=== PATIENT | male | born 1950 | race Caucasian/White ===

== ENCOUNTER 2017-02-10 17:09 | Inpatient (IN) | payer MEDICARE ==
[~2017-02-10] VITALS: Ht 177.8 cm; Wt 41.4 kg
[2017-02-10 19:21] VITALS: BP 108/65; PULSE 95; RESP 20; TEMP 101.3; O2SAT 97
[2017-02-10 19:42] VITALS: BP 103/67; PULSE 98; RESP 22; TEMP 100.9; O2SAT 97
[2017-02-10] MEDS ORDERED: SODIUM CHLOR 0.9% 1000 ML INJ 1,000 ML IV ONE ×2 (19:49)
[2017-02-10] MEDS ORDERED: SODIUM CHLOR 0.9% 1000 ML INJ 100 ML IV ONE (19:49)
--- NOTE | 2017-02-10 19:57 | PD ---
HPI Chief Complaint: Altered Mental Status Time Seen by Provider: 19:45 Travel History International Travel<30 days: No Contact w/Intl Traveler<30days: No Traveled to known affect area: No History of Present Illness HPI The patient is a 66-year-old male who presents to the emergency department from the custodial for fever and possible underlying UTI. The patient is a somewhat limited historian who is oriented to person but not place , month, or year. He does complain of some lower abdominal pain and suprapubic discomfort. He denies any chest pain, shortness breath, nausea, or vomiting. The patient is unsure if he has a fever. The patient does state that he is able to swallow oral liquids and fluids, however, appears somewhat dehydrated. The patient denies any associated cough, constipation, or abdominal distention. The patient does have a chronic indwelling Robert catheter. The physician of record on the patient's custodial papers is Dr. Bonilla. [facility] Past Medical History Narrative Medical Hypertension, CAD status post CABG, aortic stenosis, COPD, atrial fibrillation Past Surgical History Narrative Surgical Back surgery 1985, aortic valve replacement, CABG 2 Social History Alcohol Use: No Tobacco Use: No (quit smoking in 2005.) Substance Use: No Allergies-Medications (Allergen,Severity, Reaction): Coded Allergies: No Known Allergies (Unverified , 02/10/17) Reported Meds & Prescriptions Reported Meds & Active Scripts Active Reported Sodium Chloride 1 Gram Tab 3 Gm PO TID Quetiapine (Quetiapine Fumarate) 25 Mg Tab 50 Mg PO BID Pravastatin 40 Mg Tab 40 Mg PO DAILY Nitroglycerin SL (Nitroglycerin) 0.4 Mg Subl 0.4 Mg SL DIRECTED PRN ONE TABLET UNDER THE TONGUE NEEDED FOR CHEST PAIN, MAY REPEAT EVERY FIVE MINUTES FOR A TOTAL OF 3 DOSES OR CALL 911 IF NO RELIEF Lisinopril 10 Mg Tab 10 Mg PO DAILY Duoneb (Ipratropium-Albuterol Neb) 0.5-2.5 Mg/3 Ml Neb 1 Nebule INH Q2HR PRN Flomax (Tamsulosin HCl) 0.4 Mg Cap 0.4 Mg PO HS Famotidine 20 Mg Tab 20 Mg PO BID [id number] HR Patch (Clonidine) 0.1 Mg/24 Hr Patch 1 Patch T-DERMAL Q7D Review of Systems Except as stated in HPI: all other systems reviewed are Neg General / Constitutional: Positive: Fever (per custodial) Cardiovascular: No: Chest Pain or Discomfort Respiratory: No: Cough, Shortness of Breath Gastrointestinal: Positive: Abdominal Pain, No: Nausea, Vomiting Genitourinary: Positive: Pelvic Pain, Other (chronic indwelling Robert catheter) Musculoskeletal: No: Edema Physical Exam Narrative GENERAL: Awake, alert, 66-year-old male who appears his stated age and is in no acute respiratory distress. SKIN: Focused skin assessment warm/dry. HEAD: Atraumatic. Normocephalic. EYES: Pupils equal and round. No scleral icterus. No injection or drainage. ENT: No nasal bleeding or discharge. Dry mucous membranes. NECK: Trachea midline. No JVD. CARDIOVASCULAR: Regular, tachycardic with a heart rate of 110. Well-healed scar over the anterior chest. RESPIRATORY: No accessory muscle use. Clear to auscultation. Breath sounds equal bilaterally. GASTROINTESTINAL: Abdomen soft, non-tender, nondistended. Chronic indwelling Robert catheter. Back: No obvious sacral decubitus ulcers. Stool noted in his depends. MUSCULOSKELETAL: Cachexia noted. Psychiatric tract, but unable to passively extend the legs bilaterally. NEUROLOGICAL: Awake and alert. No obvious cranial nerve deficits. Motor grossly within normal limits. Normal speech. Patient is oriented to person but not place, month, or year. PSYCHIATRIC: Slightly altered mental status. Data Data Last Documented VS Vital Signs Date Time Temp Pulse Resp B/P (MAP) Pulse Ox O2 Delivery O2 Flow Rate FiO2 02/10/17 22:03 103.9 02/10/17 21:12 122 22 96 Room Air Orders Orders Electrocardiogram (02/10/17 19:49) Complete Blood Count With Diff (02/10/17 19:49) Comprehensive Metabolic Panel (02/10/17 19:49) Lactic Acid Sepsis Protocol (02/10/17 19:49) Lipase (02/10/17 19:49) Ckmb (Isoenzyme) Profile (02/10/17 19:49) Troponin I (02/10/17 19:49) Urinalysis - C+S If Indicated (02/10/17 19:49) Blood Culture (02/10/17 19:49) Chest, Single Ap (02/10/17 19:49) Blood Glucose (02/10/17 19:49) Ecg Monitoring (02/10/17 19:49) Iv Access Insert/Monitor (02/10/17 19:49) Oximetry (02/10/17 19:49) Oxygen Administration (02/10/17 19:49) Acetaminophen (Tylenol) (02/10/17 20:00) Sodium Chlor 0.9% 1000 Ml Inj (Ns 1000 M (02/10/17 19:49) Sodium Chlor 0.9% 1000 Ml Inj (Ns 1000 M (02/10/17 19:49) Sodium Chlor 0.9% 1000 Ml Inj (Ns 1000 M (02/10/17 19:49) Acetaminophen Supp (Tylenol Supp) (02/10/17 20:45) Urine Culture (02/10/17 20:15) CKMB (02/10/17 20:15) CKMB% (02/10/17 20:15) Ceftriaxone Inj (Rocephin Inj) (02/10/17 22:00) Ketorolac Inj (Toradol Inj) (02/10/17 22:15) Influenzae A/B Antigen (02/10/17 22:08) Admit Order (Ed Use Only) (02/10/17 22:27) Labs Laboratory Tests Test 02/10/17 20:15 White Blood Count 11.4 TH/MM3 Red Blood Count 3.53 MIL/MM3 Hemoglobin 10.8 GM/DL Hematocrit 32.1 % Mean Corpuscular Volume 91.0 FL Mean Corpuscular Hemoglobin 30.5 PG Mean Corpuscular Hemoglobin Concent 33.6 % Red Cell Distribution Width 13.9 % Platelet Count 122 TH/MM3 Mean Platelet Volume 7.8 FL Neutrophils (%) (Auto) 91.2 % Lymphocytes (%) (Auto) 5.0 % Monocytes (%) (Auto) 3.3 % Eosinophils (%) (Auto) 0.2 % Basophils (%) (Auto) 0.3 % Neutrophils # (Auto) 10.4 TH/MM3 Lymphocytes # (Auto) 0.6 TH/MM3 Monocytes # (Auto) 0.4 TH/MM3 Eosinophils # (Auto) 0.0 TH/MM3 Basophils # (Auto) 0.0 TH/MM3 CBC Comment DIFF FINAL Differential Comment Urine Color YELLOW Urine Turbidity CLEAR Urine pH 5.5 Urine Specific [place] 1.011 Urine Protein TRACE mg/dL Urine Glucose (UA) NEG mg/dL Urine Ketones NEG mg/dL Urine Occult Blood SMALL Urine Nitrite NEG Urine Bilirubin NEG Urine Urobilinogen LESS THAN 2.0 MG/DL Urine Leukocyte Esterase SMALL Urine RBC 5 /hpf Urine WBC 7 /hpf Urine Mucus FEW /lpf Microscopic Urinalysis Comment CATH-CULTURE IND Blood Urea Nitrogen 26 MG/DL Creatinine 1.44 MG/DL Random Glucose 107 MG/DL Total Protein 7.1 GM/DL Albumin 2.7 GM/DL Calcium Level 8.9 MG/DL Alkaline Phosphatase 76 U/L Aspartate Amino Transf (AST/SGOT) 39 U/L Alanine Aminotransferase (ALT/SGPT) 36 U/L Total Bilirubin 0.5 MG/DL Sodium Level 137 MEQ/L Potassium Level 4.5 MEQ/L Chloride Level 103 MEQ/L Carbon Dioxide Level 27.2 MEQ/L Anion Gap 7 MEQ/L Estimat Glomerular Filtration Rate 49 ML/MIN Lactic Acid Level 1.7 mmol/L Total Creatine Kinase 246 U/L Creatine Kinase MB 8.1 NG/ML Troponin I 0.03 NG/ML Lipase 171 U/L [facility] Medical Decision Making Medical Screen Exam Complete: Yes Emergency Medical Condition: Yes Medical Record Reviewed: Yes Interpretation(s) EKG reveals sinus tachycardia with a heart rate of 109. Wavy baseline. Chest x-ray reveals no acute disease, postoperative sternotomy changes noted. Laboratory Tests Test 02/10/17 20:15 White Blood Count 11.4 TH/MM3 Red Blood Count 3.53 MIL/MM3 Hemoglobin 10.8 GM/DL Hematocrit 32.1 % Mean Corpuscular Volume 91.0 FL Mean Corpuscular Hemoglobin 30.5 PG Mean Corpuscular Hemoglobin Concent 33.6 % Red Cell Distribution Width 13.9 % Platelet Count 122 TH/MM3 Mean Platelet Volume 7.8 FL Neutrophils (%) (Auto) 91.2 % Lymphocytes (%) (Auto) 5.0 % Monocytes (%) (Auto) 3.3 % Eosinophils (%) (Auto) 0.2 % Basophils (%) (Auto) 0.3 % Neutrophils # (Auto) 10.4 TH/MM3 Lymphocytes # (Auto) 0.6 TH/MM3 Monocytes # (Auto) 0.4 TH/MM3 Eosinophils # (Auto) 0.0 TH/MM3 Basophils # (Auto) 0.0 TH/MM3 CBC Comment DIFF FINAL Differential Comment Urine Color YELLOW Urine Turbidity CLEAR Urine pH 5.5 Urine Specific [place] 1.011 Urine Protein TRACE mg/dL Urine Glucose (UA) NEG mg/dL Urine Ketones NEG mg/dL Urine Occult Blood SMALL Urine Nitrite NEG Urine Bilirubin NEG Urine Urobilinogen LESS THAN 2.0 MG/DL Urine Leukocyte Esterase SMALL Urine RBC 5 /hpf Urine WBC 7 /hpf Urine Mucus FEW /lpf Microscopic Urinalysis Comment CATH-CULTURE IND Blood Urea Nitrogen 26 MG/DL Creatinine 1.44 MG/DL Random Glucose 107 MG/DL Total Protein 7.1 GM/DL Albumin 2.7 GM/DL Calcium Level 8.9 MG/DL Alkaline Phosphatase 76 U/L Aspartate Amino Transf (AST/SGOT) 39 U/L Alanine Aminotransferase (ALT/SGPT) 36 U/L Total Bilirubin 0.5 MG/DL Sodium Level 137 MEQ/L Potassium Level 4.5 MEQ/L Chloride Level 103 MEQ/L Carbon Dioxide Level 27.2 MEQ/L Anion Gap 7 MEQ/L Estimat Glomerular Filtration Rate 49 ML/MIN Lactic Acid Level 1.7 mmol/L Total Creatine Kinase 246 U/L Creatine Kinase MB 8.1 NG/ML Troponin I 0.03 NG/ML Lipase 171 U/L Last Impressions Chest X-Ray 02/10/171948 Signed Impressions: Service Date/Time: Friday, February 10, 2017 19:56 - CONCLUSION: No acute disease. Jaylan Velazquez MD Differential Diagnosis Differential diagnosis includes urosepsis, UTI, pyelonephritis, dehydration, acute kidney injury, delirium, pneumonia, septicemia, sepsis. Narrative Course IV was established, labs are drawn and sent, and the patient was placed on cardiac telemetry monitoring and continuous pulse oximetry monitoring. EKG was ordered and interpreted. Blood cultures and lactic gas were sent to lab. The patient was administered 3 L of IV fluids. I had a discussion with patient's family at bedside who states the patient is at baseline, has been this way for the last month after he suffered an intracranial hemorrhage. Family states the patient was discharged discharged from this hospital last night and they were called stated the patient had a fever. However, they state the patient looks pretty well compared to his previous hospitalizations. The patient's lactic acid is normal. White count is minimally elevated just over 11. UA does have RBCs and WBCs. Chest x-rays clear. The patient was administered a dose of Rocephin 1 g intravenously. The patient was reevaluated at 10:03 PM, he was now more tachycardic at 123 and his temperature was now 103.9. I'm unsure if this is related to fever possible previous intracranial hemorrhage. Patient will need admission until blood cultures and urine cultures have resulted. The previous admitting service was called for admission. Sepsis Criteria SIRS Criteria (2 or more): Temp > 100.9 or < 96.8, Heart rate over 90 Sepsis Criteria (SIRS+source): Infect source susp/known Criteria Outcome: Meets sepsis criteria Physician Communication Physician Communication [facility] I discussed the patient with Dr. Shin who agrees with admission. Diagnosis Primary Impression: UTI (urinary tract infection) Qualified Codes: T83.511A - Infection and inflammatory reaction due to indwelling urethral catheter, initial encounter; N39.0 - Urinary tract infection , site not specified Additional Impressions: Febrile illness Sepsis Qualified Codes: A41.9 - Sepsis, unspecified organism Admitting Information Admitting Physician Requests: Admit Patient Instructions: General Instructions Additional Instructions: Discharge back to the custodial. Cipro as directed. Follow-up with your primary physician. Return if symptoms worsen or progress. Med/Other Pt SpecificInfo: Prescription(s) given Disposition: 01 DISCHARGE HOME Condition: Stable Delfino Montez MD Feb 10, 2017 19:57
[2017-02-10] MEDS ORDERED: ACETAMINOPHEN 325 MG TAB PO ONE (20:00)
[2017-02-10] MEDS ORDERED: PRAV40TA2 PO (20:11)
[2017-02-10] MEDS ORDERED: IPRASOL INH (20:11)
[2017-02-10] MEDS ORDERED: FAMO20TA2 PO (20:11)
[2017-02-10] MEDS ORDERED: SODI1TAB PO (20:11)
[2017-02-10] MEDS ORDERED: TAMS5CAP PO (20:11)
[2017-02-10] MEDS ORDERED: LISI10TA3 PO (20:11)
[2017-02-10] MEDS ORDERED: NITR1SUB3 SL (20:11)
[2017-02-10] MEDS ORDERED: QUET1TAB7 PO (20:11)
[2017-02-10] MEDS ORDERED: CLON.1T T-DERMAL (20:11)
--- NOTE | 2017-02-10 20:15 | RADRPT ---
EXAM DATE/TIME: 02/10/2017 19:56 [place] COMPARISON: No previous studies available for comparison. INDICATIONS : Shortness of breath. MEDICAL HISTORY : None. SURGICAL HISTORY : Thoracic surgery ENCOUNTER: Initial ACUITY: 1 day PAIN SCORE: Non-responsive. LOCATION: Bilateral chest FINDINGS: Median sternotomy wires are noted. Heart size normal. Lungs are clear. Mild hyperinflation. CONCLUSION: No acute disease. Jaylan Velazquez MD on February 10, 2017 at 20:14 Board Certified Radiologist. This report was verified electronically.
[2017-02-10 20:39] LABS: AUTOMATED NEUTROPHIL # 10.4 TH/MM3 (1.8-7.7); BASOPHIL % 0.3 % (0.0-2.0); EOSINOPHIL % 0.2 % (0.0-4.0); HEMATOCRIT 32.1 % (39.0-51.0); HEMO FLAGS DIFF FINAL; LYMPHOCYTE # 0.6 TH/MM3 (1.0-4.8); MEAN CORPUSCULAR HEMOGLOBIN 30.5 PG (27.0-34.0); MEAN CORPUSCULAR HGB CONC 33.6 % (32.0-36.0); MONO % 3.3 % (0.0-8.0); NEUT % 91.2 % (16.0-70.0); PLATELET COUNT 122 TH/MM3 (150-450); RED BLOOD COUNT 3.53 MIL/MM3 (4.50-5.90); RED CELL DISTRIBUTION WIDTH 13.9 % (11.6-17.2); WHITE BLOOD COUNT 11.4 TH/MM3 (4.0-11.0)
[2017-02-10 20:43] LABS: BLOOD, URINE SMALL (NEG); COMMENT (UR) CATH-CULTURE IND; CULTURE IF INDICATED CATH CULTURE IND; GLUCOSE,URINE NEG (NEG); KETONE, URINE NEG (NEG); MUCUS URINE FEW /lpf (OCC); NITRITE,URINE NEG (NEG); PH, URINE 5.5 (5.0-8.5); URINE COLOR YELLOW (YELLW/STRAW)
[2017-02-10] MEDS ORDERED: ACETAMINOPHEN 650 MG SUPP RECTAL ONE (20:45)
[2017-02-10 20:58] LABS: ALT (GPT) 36 U/L (12-78); ANION GAP 7 MEQ/L (5-15); AST (GOT) 39 U/L (15-37); BICARBONATE 27.2 MEQ/L (21.0-32.0); BLOOD UREA NITROGEN 26 MG/DL (7-18); CHLORIDE 103 MEQ/L (98-107); GLOMERULAR FILTRATION RATE 49 ML/MIN (>89); POTASSIUM 4.5 MEQ/L (3.5-5.1); SODIUM (NA) 137 MEQ/L (136-145)
[2017-02-10 21:03] LABS: ALKALINE PHOSPHATASE 76 U/L (45-117); CREATINE KINASE 246 U/L (39-308); TOTAL BILIRUBIN ADULT 0.5 MG/DL (0.2-1.0)
[2017-02-10 21:12] VITALS: BP 127/73; PULSE 122; RESP 22; O2SAT 96
[2017-02-10 21:15] LABS: CKMB 8.1 NG/ML (0.5-3.6)
[2017-02-10] MEDS ORDERED: cefTRIAXone INJ 1,000 MG in SODIUM CHLORIDE 0.9% INJ 100 ML IV ONE (22:00)
[2017-02-10 22:03] VITALS: BP 123/62; PULSE 120; RESP 20; TEMP 103.9; O2SAT 98
[2017-02-10] MEDS ORDERED: KETOROLAC TROMETHAMINE 30 MG/ML (IVP) VIAL IV PUSH ONE (22:15)
[2017-02-10] MEDS ORDERED: LACTULOSE SYRUP 20 GM/30 ML CUP PO PRN (22:45)
[2017-02-10] MEDS ORDERED: SENNOSIDES 8.6 MG TAB PO PRN (22:45)
[2017-02-10] MEDS ORDERED: ACETAMINOPHEN 325 MG TAB PO PRN (22:45)
[2017-02-10] MEDS ORDERED: RESP: ALBUTEROL 2.5 MG/IPRATROPIUM 0.5 MG NEB (PRN) NEB (22:45)
[2017-02-10] MEDS ORDERED: MORPHINE SULFATE 4 MG/ML INJ IV PUSH PRN (22:45)
[2017-02-10] MEDS ORDERED: MAGNESIUM HYDROXIDE SUSP 30 ML CUP PO PRN (22:45)
[2017-02-10] MEDS ORDERED: SODIUM CHLORIDE 0.9% FLUSH 10 ML FLUSH IV FLUSH PRN (22:45)
[2017-02-10] MEDS ORDERED: ONDANSETRON HCL 4 MG/2 ML VIAL IVP PRN (22:45)
[2017-02-10] MEDS ORDERED: BISACODYL 10 MG SUPP RECTAL PRN (22:45)
--- NOTE | 2017-02-10 22:49 | HHI.HP ---
[facility] Ousmane Medrano MD Admission Diagnosis UTI, febrile illness, sepsis Diagnoses: (1) Encephalopathy Diagnosis: Principal (2) Sepsis Diagnosis: Principal (3) UTI (urinary tract infection) Diagnosis: Principal (4) Renal insufficiency Diagnosis: Principal (5) Thrombocytopenia Diagnosis: Principal Travel History International Travel<30 Days: No Contact w/Intl Traveler <30 Da: No Traveled to Known Affected Are: No History of Present Illness Alternate This is a 66-year-old male with a PMH of HTN, CAD, COPD, h/o ICH Left Temporal, Aortic Stenosis, A-fib off Coumadin who was brought to the ER secondary to AMS. Pt w/ recent admit (under above V number) for FTT and Malnutrition, found to have Left Temporal ICH, s/p eval by [facility] w/ nonoperative management, off Coumadin due to ICH. D/c'd to SNF, returns now for AMS, fever and possible UTI. Pt unable to provide much history, oriented to person only. On arrival, BP 108/65, HR 95, O2 sat 97% on RA, Temp 101.3, 103.9. WBC 11.4. Platelets 122 , previously 109 on 02/07/17. Creatinine 1.44, previously 0.72 on 02/07/17. U/a positive for UTI. CXR w/ no acute findings. Per , mental status back to baseline. S/p Rocephin in ER, was to be d/c'd back to SNF, however developed recurrent fever w/ Temp 103.9 and tachycardia. S/p IVF in ER. Review of Systems Except as stated in HPI: all other systems reviewed are Neg ROS: Unable to obtain. Past Family Social History Past Medical History PMH: HTN, CAD, COPD, h/o ICH Left Temporal, Aortic Stenosis, A-fib off Coumadin Past Surgical History PAST SURGICAL HISTORY: Aortic Valve Replacement, CABG, Hernia Repair Allergies: Coded Allergies: No Known Allergies (Unverified , 02/10/17) Family History PAST FAMILY HISTORY: Reviewed. No h/o DM or CAD Social History PAST SOCIAL HISTORY: Negative for alcohol, tobacco or drugs. Physical Exam Vital Signs Vital Signs Date Time Temp Pulse Resp B/P (MAP) Pulse Ox O2 Delivery O2 Flow Rate FiO2 02/10/17 22:03 103.9 02/10/17 21:12 122 22 127/73 (91) 96 Room Air 02/10/17 19:42 100.9 98 22 103/67 (79) 97 02/10/17 19:21 101.3 95 20 108/65 (79) 97 Room Air Physical Exam PE: GENERAL: Thin, cachectic middle-aged white male in no acute distress. HEENT: PERRLA, EOMI. No scleral icterus or conjunctival pallor. No lid lag or facial droop. CARDIOVASCULAR: Regular rate and rhythm. No obvious murmurs to auscultation. No chest tenderness to palpation. RESPIRATORY: No obvious rhonchi or wheezing. Clear to auscultation. Breath sounds equal bilaterally. GASTROINTESTINAL: Abdomen soft, non-tender, nondistended. BS normal. MUSCULOSKELETAL: Extremities without clubbing, cyanosis, or edema. No obvious deformities. NEUROLOGICAL: Awake, alert and oriented to person only. No focal neurologic deficits. Moving both upper and lower extremities spontaneously. Laboratory Laboratory Tests Test 02/10/17 20:15 White Blood Count 11.4 Red Blood Count 3.53 Hemoglobin 10.8 Hematocrit 32.1 Mean Corpuscular Volume 91.0 Mean Corpuscular Hemoglobin 30.5 Mean Corpuscular Hemoglobin Concent 33.6 Red Cell Distribution Width 13.9 Platelet Count 122 Mean Platelet Volume 7.8 Neutrophils (%) (Auto) 91.2 Lymphocytes (%) (Auto) 5.0 Monocytes (%) (Auto) 3.3 Eosinophils (%) (Auto) 0.2 Basophils (%) (Auto) 0.3 Neutrophils # (Auto) 10.4 Lymphocytes # (Auto) 0.6 Monocytes # (Auto) 0.4 Eosinophils # (Auto) 0.0 Basophils # (Auto) 0.0 CBC Comment DIFF FINAL Differential Comment Urine Color YELLOW Urine Turbidity CLEAR Urine pH 5.5 Urine Specific [place] 1.011 Urine Protein TRACE Urine Glucose (UA) NEG Urine Ketones NEG Urine Occult Blood SMALL Urine Nitrite NEG Urine Bilirubin NEG Urine Urobilinogen LESS THAN 2.0 Urine Leukocyte Esterase SMALL Urine RBC 5 Urine WBC 7 Urine Mucus FEW Microscopic Urinalysis Comment CATH-CULTURE IND Blood Urea Nitrogen 26 Creatinine 1.44 Random Glucose 107 Total Protein 7.1 Albumin 2.7 Calcium Level 8.9 Alkaline Phosphatase 76 Aspartate Amino Transf (AST/SGOT) 39 Alanine Aminotransferase (ALT/SGPT) 36 Total Bilirubin 0.5 Sodium Level 137 Potassium Level 4.5 Chloride Level 103 Carbon Dioxide Level 27.2 Anion Gap 7 Estimat Glomerular Filtration Rate 49 Lactic Acid Level 1.7 Total Creatine Kinase 246 Creatine Kinase MB 8.1 Troponin I 0.03 Lipase 171 Date/Time Source Procedure Growth Status 02/10/17 20:10 Blood Peripheral Aerobic Blood Culture Pending Received 02/10/17 20:10 Blood Peripheral Anaerobic Blood Culture Pending Received 02/10/17 22:30 Nasal Aspirate Influenza Types A,B Antigen (CARRIE) Pending Received 02/10/17 20:15 Urine Catheterized Urine Urine Culture Pending Worksheet Result Diagram: 02/10/17201402/10/172014 Caprini VTE Risk Assessment Caprini VTE Risk Assessment: Mod/High Risk (score >= 2) Caprini Risk Assessment Model Point Value = 1 Point Value = 2 Point Value = 3 Point Value = 5 Age 41-60 Minor surgery BMI > 25 kg/m2 Swollen legs Varicose veins or History of unexplained or recurrent spontaneous Oral contraceptives or hormone replacement Sepsis (< 1 month) Serious lung disease, including pneumonia (< 1 month) Abnormal pulmonary function Acute myocardial infarction Congestive heart failure (< 1 month) History of inflammatory bowel disease Medical patient at bed rest Age 61-74 Arthroscopic surgery Major open surgery (> 45 min) Laparoscopic surgery (> 45 min) Malignancy Confined to bed (> 72 hours) Immobilizing plaster cast Central venous access Age >= 75 History of VTE Family history of VTE Factor V Leiden Prothrombin [id number] Lupus anticoagulant Anticardiolipin antibodies Elevated serum homocysteine Heparin-induced thrombocytopenia Other congenital or acquired thrombophilia Stroke (< 1 month) Elective arthroplasty Hip, pelvis, or leg fracture Acute spinal cord injury (< 1 month) Prophylaxis Regimen Total Risk Factor Score Risk Level Prophylaxis Regimen 0-1 Low Early ambulation 2 Moderate Order ONE of the following: *Sequential Compression Device (SCD) *Heparin 5000 units SQ BID 3-4 Higher Order ONE of the following medications: *Heparin 5000 units SQ TID *Enoxaparin/Lovenox 40 mg SQ daily (WT < 150 kg, CrCl > 30 mL/min) *Enoxaparin/Lovenox 30 mg SQ daily (WT < 150 kg, CrCl > 10-29 mL/min) *Enoxaparin/Lovenox 30 mg SQ BID (WT < 150 kg, CrCl > 30 mL/min) AND/OR *Sequential Compression Device (SCD) 5 or more Highest Order ONE of the following medications: *Heparin 5000 units SQ TID (Preferred with Epidurals) *Enoxaparin/Lovenox 40 mg SQ daily (WT < 150 kg, CrCl > 30 mL/min) *Enoxaparin/Lovenox 30 mg SQ daily (WT < 150 kg, CrCl > 10-29 mL/min) *Enoxaparin/Lovenox 30 mg SQ BID (WT < 150 kg, CrCl > 30 mL/min) AND *Sequential Compression Device (SCD) Assessment and Plan Problem List: (1) Encephalopathy ICD Code: G93.40 - Encephalopathy, unspecified (2) Sepsis ICD Code: A41.9 - Sepsis, unspecified organism Status: Acute (3) UTI (urinary tract infection) ICD Code: N39.0 - Urinary tract infection, site not specified Status: Acute (4) Renal insufficiency ICD Code: N28.9 - Disorder of kidney and ureter, unspecified (5) Thrombocytopenia ICD Code: D69.6 - Thrombocytopenia, unspecified Assessment and Plan A/P: 1. Encephalopathy: sent to ER from SNF secondary to AMS w/ associated fever. H/o ICH on recent admit 01/29-02/09/17, oriented to person only, per this is baseline. No focal deficits. 2. Sepsis: Temp 103.9, HR 120, WBC 11, Source-UTI. S/p Blood/Urine Cultures, Rocephin in ER. Follow up cultures, continue IV Rocephin, IVF for hydration. Episode of hypotension in ER, IVF, monitor BP closely. 3. UTI: U/a w/ UTI. +Indwelling Robert. S/p Rocephin in ER, continue w/ IV Abx as above. IVF for hydration. 4. ANNIA: Creatinine 1.44, previously 0.72 on 02/07/17 from previous visit. + UTI. IVF for hydration, repeat labs in am. 5. Thrombocytopenia: Chronic. Platelets 122, previously 109 on 02/07/17. No active bleeding. Previously on Coumadin for A-fib, now off after ICH on recent admit. 6. DVT Prophylaxis: SCD/Bryan. 7. Social work for d/c planning as needed. 8. Case discussed w/ ER physician at length. Physician Certification 2 Midnight Certification Type: Admission for Inpatient Services Order for Inpatient Services The services are ordered in accordance with Medicare regulations or non- Medicare payer requirements, as applicable. In the case of services not specified as inpatient-only, they are appropriately provided as inpatient services in accordance with the 2-midnight benchmark. Estimated LOS (days): 2 days is the estimated time the patient will need to remain in the hospital, assuming treatment plan goals are met and no additional complications. Post-Hospital Plan: Not yet determined Problem Qualifiers (1) Sepsis: Qualified Codes: A41.9 - Sepsis, unspecified organism (2) UTI (urinary tract infection): Qualified Codes: T83.511A - Infection and inflammatory reaction due to indwelling urethral catheter, initial encounter; N39.0 - Urinary tract infection , site not specified Komal Shin MD Feb 10, 2017 22:49
[2017-02-10 23:01] VITALS: BP 96/55; PULSE 114; RESP 18; O2SAT 95
[2017-02-10] MEDS: SODIUM CHLOR 0.9% 1000 ML INJ 1,000 ML IV SCH (23:42)
[2017-02-10 23:55] VITALS: BP 91/51; PULSE 109; RESP 18; O2SAT 97
[2017-02-11] VITALS (11 sets, daily range): BP systolic 85–124; BP diastolic 49–69; PULSE 66–98; RESP 16–20; TEMP 96.7–98.6; O2SAT 94–99
[2017-02-11] MEDS ORDERED: SODIUM CHLORID 0.9% 500 ML INJ 500 ML IV ONE (00:30)
[2017-02-11 06:23] LABS: AUTOMATED NEUTROPHIL # 12.9 TH/MM3 (1.8-7.7); BASOPHIL % 0.2 % (0.0-2.0); HEMATOCRIT 24.1 % (39.0-51.0); LYMPH % 5.4 % (9.0-44.0); LYMPHOCYTE # 0.8 TH/MM3 (1.0-4.8); MEAN CELL VOLUME 90.6 FL (80.0-100.0); MEAN CORPUSCULAR HEMOGLOBIN 30.6 PG (27.0-34.0); MEAN CORPUSCULAR HGB CONC 33.8 % (32.0-36.0); NEUT % 89.4 % (16.0-70.0); PLATELET COUNT 89 TH/MM3 (150-450); RED BLOOD COUNT 2.66 MIL/MM3 (4.50-5.90); RED CELL DISTRIBUTION WIDTH 13.9 % (11.6-17.2); WHITE BLOOD COUNT 14.4 TH/MM3 (4.0-11.0)
[2017-02-11 06:28] LABS: HEMO FLAGS AUTO DIFF
[2017-02-11 07:12] LABS: ALKALINE PHOSPHATASE 55 U/L (45-117); ALT (GPT) 26 U/L (12-78); ANION GAP 6 MEQ/L (5-15); AST (GOT) 41 U/L (15-37); BICARBONATE 24.8 MEQ/L (21.0-32.0); BLOOD UREA NITROGEN 21 MG/DL (7-18); CHLORIDE 111 MEQ/L (98-107); GLOMERULAR FILTRATION RATE 91 ML/MIN (>89); POTASSIUM 4.2 MEQ/L (3.5-5.1); SODIUM (NA) 142 MEQ/L (136-145); TOTAL BILIRUBIN ADULT 0.4 MG/DL (0.2-1.0)
[2017-02-11 07:20] LABS: BANDS 19 % (0-6); PLATELET ESTIMATE SMEAR LOW (NORMAL); PLATELET MORPHOLOGY NORMAL (NORMAL); POLYS (SEG NEUTROPHILS) 71 % (16-70); SCAN/DIFF FINAL DIFF MANUAL; WBC DIFF SAMPLE 100
[2017-02-11 07:21] LABS: OVALOCYTES 1+ (NORMAL)
[2017-02-11] MEDS: SODIUM CHLORIDE 0.9% FLUSH 10 ML FLUSH IV FLUSH SCH ×2 (09:47→21:00)
[2017-02-11] MEDS: QUEtiapine FUMARATE 25 MG TAB PO SCH ×2 (09:49→21:24)
[2017-02-11] MEDS: SODIUM CHLOR 0.9% 1000 ML INJ 1,000 ML IV SCH ×2 (09:50→21:24)
[2017-02-11] MEDS: DOCUSATE SODIUM 50 MG/SENNA 8.6 MG TAB PO SCH ×2 (09:50→21:24)
[2017-02-11] MEDS: FAMOTIDINE 20 MG TAB PO SCH ×2 (09:50→21:24)
[2017-02-11] MEDS: PRAVASTATIN SOD 40 MG TAB PO SCH (09:50)
[2017-02-11] MEDS: SODIUM CHLORIDE 1 GRAM TAB PO SCH ×3 (10:45→18:00)
--- NOTE | 2017-02-11 10:45 | HHI.PR ---
Subjective Remarks Written by Emely Wolff, acting as scribe for Dr. Rodriguez on 02/11/17 at 10: 45. Follow-up visit encephalopathy, sepsis, urinary tract infection, acute kidney injury. Patient seen and examined today lying in bed. Reports he is doing okay. Patient is oriented to self and states he is in [place]. Confuse. Able to follow commands. Pleasant. Denies pain and discomfort. Denies SOB/ dyspnea. Denies chest pain. Denies fevers, chills, n/v/d. Objective Vitals Vital Signs Date Time Temp Pulse Resp B/P (MAP) Pulse Ox O2 Delivery O2 Flow Rate FiO2 02/11/17 08:00 96.7 70 18 87/50 (62) 94 02/11/17 04:26 98.2 83 18 85/49 (61) 95 02/11/17 04:07 02/11/17 02:18 98.6 98 20 97/61 (73) 99 02/11/17 02:00 95 16 93/55 (68) 97 Room Air 02/11/17 01:00 92 16 88/52 (64) 98 Room Air 02/10/17 23:55 109 18 91/51 (64) 97 Room Air 02/10/17 23:01 114 18 96/55 (69) 95 Room Air 02/10/17 22:03 103.9 120 20 123/62 (82) 98 Room Air 02/10/17 21:12 122 22 127/73 (91) 96 Room Air 02/10/17 19:42 100.9 98 22 103/67 (79) 97 02/10/17 19:21 101.3 95 20 108/65 (79) 97 Room Air I/O 02/10/17 02/10/17 02/10/17 02/11/17 02/11/17 02/11/17 07:00 15:00 23:00 07:00 15:00 23:00 Intake Total 2200 ml 580 ml 120 ml Output Total 1200 ml Balance 2200 ml -620 ml 120 ml Intake Oral 80 ml 120 ml IV Total 2200 ml 500 ml Output Urine Total 1200 ml # Bowel Movements 1 Result Diagram: 02/11/1760402/11/17604 Imaging Last Impressions Chest X-Ray 02/10/171948 Signed Impressions: Service Date/Time: Friday, February 10, 2017 19:56 - CONCLUSION: No acute disease. Jaylan Velazquez MD Objective Remarks GENERAL: This is a thin-appearing, well-developed patient, in no apparent distress. SKIN: Warm and dry. HEENT: Normocephalic. Pupils equal round and reactive. Nose without bleeding. Airway patent. NECK: Trachea midline. No JVD. Supple. CARDIOVASCULAR: Regular rate and rhythm without murmurs, gallops, or rubs. RESPIRATORY: Clear to auscultation. Breath sounds equal bilaterally. No wheezes , rales, or rhonchi. GASTROINTESTINAL: Abdomen soft, non-tender, nondistended. Bowel Sounds normoactive x4. MUSCULOSKELETAL: Extremities without clubbing, cyanosis, or edema. NEUROLOGICAL: Awake and alert. Pleasantly confused. Oriented to person. Moves all extremities. Normal speech. A/P Problem List: (1) Encephalopathy ICD Code: G93.40 - Encephalopathy, unspecified (2) Sepsis ICD Code: A41.9 - Sepsis, unspecified organism Status: Acute (3) UTI (urinary tract infection) ICD Code: N39.0 - Urinary tract infection, site not specified Status: Acute (4) Renal insufficiency ICD Code: N28.9 - Disorder of kidney and ureter, unspecified (5) Thrombocytopenia ICD Code: D69.6 - Thrombocytopenia, unspecified Assessment and Plan Patient is a 66-year-old male with primary medical history of HTN, CAD, COPD, ICH left temporal, aortic stenosis, A. fib off Coumadin who came into the hospital secondary to altered mental status. Sepsis, severe: Temp 103.9, HR 120, WBC 11, Source-UTI. Urinary tract infection - S/p Blood/Urine Cultures. Pending - Rocephin IV - Follow up cultures, blood cultures showing positive bacteremia- gram- positive cocci - Increase leukocytosis - Start Vancomycin - Continue with IV fluids - Consult infectious disease for further recommendations per - Follow-up labs. Encephalopathy: sent to ER from SNF secondary to AMS w/ associated fever. - H/o ICH on recent admit 01/29-02/09/17, oriented to person only, per this is baseline. - No focal deficits. - This is possibly due to severe sepsis ANNIA: Creatinine 1.44 --> 0.84 - previously 0.72 on 02/07/17 from previous visit. - UA positive for urinary tract infection. - Avoid nephrotoxins - IVF for hydration - Improved Thrombocytopenia: Chronic. - Platelets 122, previously 109 on 02/07/17. - No active bleeding. - Previously on Coumadin for A-fib, now off after ICH on recent admit. DVT Prophylaxis: SCD/Bryan. Discussed with patient, nursing Discharge Planning Not yet ready for discharge. Case management following. Problem Qualifiers (1) Sepsis: Qualified Codes: A41.9 - Sepsis, unspecified organism (2) UTI (urinary tract infection): Qualified Codes: T83.511A - Infection and inflammatory reaction due to indwelling urethral catheter, initial encounter; N39.0 - Urinary tract infection , site not specified Emely Costello Feb 11, 2017 10:45 Sinan Rodriguez MD Feb 11, 2017 10:45
[2017-02-11] MEDS ORDERED: VANCOMYCIN INJ 1,000 MG in SODIUM CHLOR 0.9% 250 ML INJ 250 ML IV SCH (11:30)
--- NOTE | 2017-02-11 12:29 | EKG ---
Date Performed: 02/10/2017 Time Performed: 20:23:04 PTAGE: 66 years EKG: SINUS TACHYCARDIA ABNORMAL RHYTHM ECG NO PREVIOUS TRACING DOCTOR: Ishmael Ying Interpretating Date/Time 02/11/2017 12:27:10
[2017-02-11] MEDS: VANCOMYCIN 1,000 MG/NS 250 ML IV SCH ×2 (15:45)
[2017-02-11] MEDS: TAMSULOSIN HCL 0.4 MG CAP PO SCH (21:24)
[2017-02-12] VITALS (7 sets, daily range): BP systolic 123–141; BP diastolic 63–70; PULSE 70–81; RESP 18–20; TEMP 97.5–98.2; O2SAT 95–98
[2017-02-12] MEDS: SODIUM CHLOR 0.9% 1000 ML INJ 1,000 ML IV SCH ×2 (04:38→23:13)
[2017-02-12] MEDS: DOCUSATE SODIUM 50 MG/SENNA 8.6 MG TAB PO SCH ×2 (09:00→21:42)
[2017-02-12] MEDS: SODIUM CHLORIDE 0.9% FLUSH 10 ML FLUSH IV FLUSH SCH ×2 (09:00→21:00)
[2017-02-12] MEDS: SODIUM CHLORIDE 1 GRAM TAB PO SCH (09:30)
[2017-02-12] MEDS: QUEtiapine FUMARATE 25 MG TAB PO SCH ×2 (09:30→21:42)
[2017-02-12] MEDS: FAMOTIDINE 20 MG TAB PO SCH ×2 (09:30→21:42)
[2017-02-12] MEDS: PRAVASTATIN SOD 40 MG TAB PO SCH (09:31)
[2017-02-12 09:50] LABS: HEMATOCRIT 27.5 % (39.0-51.0); MEAN CELL VOLUME 90.9 FL (80.0-100.0); MEAN CORPUSCULAR HGB CONC 34.1 % (32.0-36.0); PLATELET COUNT 101 TH/MM3 (150-450); RED BLOOD COUNT 3.02 MIL/MM3 (4.50-5.90); REVIEW FLAG FINAL
[2017-02-12 10:18] LABS: ANION GAP 9 MEQ/L (5-15); AST (GOT) 44 U/L (15-37); BICARBONATE 23.4 MEQ/L (21.0-32.0); BLOOD UREA NITROGEN 13 MG/DL (7-18); CHLORIDE 111 MEQ/L (98-107); GLOMERULAR FILTRATION RATE 137 ML/MIN (>89); POTASSIUM 3.5 MEQ/L (3.5-5.1); SODIUM (NA) 143 MEQ/L (136-145)
[2017-02-12 10:19] LABS: ALT (GPT) 31 U/L (12-78)
[2017-02-12 10:22] LABS: ALKALINE PHOSPHATASE 62 U/L (45-117); TOTAL BILIRUBIN ADULT 0.5 MG/DL (0.2-1.0)
--- NOTE | 2017-02-12 10:28 | HHI.PR ---
Subjective Remarks Written by Jina Gonzalez, acting as scribe for Dr. Rodriguez on 02/12/17 at 10: 28. Follow up on patient with AMS, sepsis, ANNIA. Patient seen and examined. Patient denies any complaints. He denies any fever, chills, chest pain, abdominal pain, shortness of breath, nausea or vomiting. Patient remains pleasantly confused. Discussed with nursing staff, no acute issues overnight but does report decreased appetite. Patient states that he ate but does not appear that anything has been touched on his food tray. Confirmed with nursing staff, patient came in with [facility]. Patient with positive blood cultures and ID consulted. Objective Vitals Vital Signs Date Time Temp Pulse Resp B/P (MAP) Pulse Ox O2 Delivery O2 Flow Rate FiO2 02/12/17 07:34 97.7 81 18 139/70 (93) 96 02/11/17 23:16 98.2 82 20 118/67 (84) 98 02/11/17 19:55 98.2 80 20 124/64 (84) 97 02/11/17 16:06 97.7 81 20 98/54 (69) 98 02/11/17 16:00 73 02/11/17 12:00 71 02/11/17 11:57 97.2 77 18 122/69 (86) 97 I/O 02/11/17 02/11/17 02/11/17 02/12/17 02/12/17 02/12/17 07:00 15:00 23:00 07:00 15:00 23:00 Intake Total 580 ml 120 ml 1000 ml Output Total 1200 ml Balance -620 ml 120 ml 1000 ml Intake Oral 80 ml 120 ml IV Total 500 ml 1000 ml Output Urine Total 1200 ml Result Diagram: 02/12/17 0855 02/12/17 0855 Imaging Last Impressions Chest X-Ray 02/10/171948 Signed Impressions: Service Date/Time: Friday, February 10, 2017 19:56 - CONCLUSION: No acute disease. Jaylan Velazquez MD Objective Remarks GENERAL: This is a thin-appearing, well-developed patient, in no apparent distress. Awake and alert. Pleasantly confused. SKIN: Warm and dry. HEENT: Normocephalic. EOMI. Nose without bleeding. Airway patent. NECK: Trachea midline. Supple. CARDIOVASCULAR: Regular rate and rhythm. (+) murmur present. RESPIRATORY: Clear to auscultation. Breath sounds equal bilaterally. No wheezes , rales, or rhonchi. GASTROINTESTINAL: Abdomen soft, non-tender, nondistended. Bowel Sounds normoactive x4. GENITOURINARY: Bridges in place with pale yellow urine in bag. MUSCULOSKELETAL: Extremities without clubbing, cyanosis, or edema. NEUROLOGICAL: Awake and alert. Pleasantly confused. Oriented to person and place. Moves all extremities. Normal speech. Medications and IVs Current Medications Medications (Trade) Dose Ordered Sig/Maia Route Start Time Stop Time Status Last Admin (Duoneb Neb) 1 ampule Q2HR NEB PRN NEB 02/10/17 22:45 Sodium Chloride 1,000 ml @ 100 mls/hr Q10H IV 02/10/17 22:42 02/12/17 04:38 (NS Flush) 2 ml UNSCH PRN IV FLUSH 02/10/17 22:45 (NS Flush) 2 ml BID IV FLUSH 02/11/17 09:00 (Zofran Inj) 4 mg Q6H PRN IVP 02/10/17 22:45 (Tylenol) 650 mg Q6H PRN PO 02/10/17 22:45 (Morphine Inj) 2 mg Q3H PRN IV PUSH 02/10/17 22:45 (Roxicodone) 5 mg Q4H PRN PO 02/10/17 22:45 (Sheila-Colace) 1 tab BID PO 02/11/17 09:00 02/11/17 21:24 (Milk Of Magnesia Liq) 30 ml Q12H PRN PO 02/10/17 22:45 (Senokot) 17.2 mg Q12H PRN PO 02/10/17 22:45 (Dulcolax Supp) 10 mg DAILY PRN RECTAL 02/10/17 22:45 (Lactulose Liq) 30 ml DAILY PRN PO 02/10/17 22:45 (Pepcid) 10 mg BID PO 02/11/17 09:00 02/12/17 09:30 (Pravachol) 40 mg DAILY PO 02/11/17 09:00 02/12/17 09:31 (SEROquel) 50 mg BID PO 02/11/17 09:00 02/12/17 09:30 (Sodium Chloride) 3 gm TID PO 02/11/17 09:00 02/12/17 09:30 (Flomax) 0.4 mg HS PO 02/11/17 21:00 02/11/17 21:24 Vancomycin HCl 1000 mg/Sodium Chloride 250 ml @ 250 mls/hr Q12H IV 02/11/17 12:00 02/12/17 00:00 A/P Problem List: (1) Encephalopathy ICD Code: G93.40 - Encephalopathy, unspecified (2) Sepsis ICD Code: A41.9 - Sepsis, unspecified organism Status: Acute (3) UTI (urinary tract infection) ICD Code: N39.0 - Urinary tract infection, site not specified Status: Acute (4) Renal insufficiency ICD Code: N28.9 - Disorder of kidney and ureter, unspecified (5) Thrombocytopenia ICD Code: D69.6 - Thrombocytopenia, unspecified Assessment and Plan Patient is a 66-year-old male with primary medical history of HTN, CAD, COPD, recent ICH left temporal, aortic stenosis, s/p aortic valve replacement and A. fib off Coumadin who came into the hospital secondary to altered mental status. Sepsis, severe: Temp 103.9, HR 120, WBC 11, Source- possible UTI, bacteremia - Blood cx (+)gram positive cocci and streptococcus. Started on vancomycin. Patient afebrile x 24hrs. - repeat BCX ordered/pending - urine culture with immature growth, reincubate - ID consulted. Appreciate their assistance. Discussed with Dr. Dominguez. Possible valve endocarditis. Consider FRANKLIN. Follow-up on ID results. Continue antibiotic treatment course per ID recommendations. - Continue with IV fluids Leukocytosis - Secondary to above - Trended down to normal since beginning IV vancomycin - Monitor as indicated Encephalopathy: sent to ER from SNF secondary to AMS w/ associated fever. - H/o ICH on recent admit 01/29-02/09/17, oriented to person only, per this is baseline. - No focal deficits. - This is possibly due to severe sepsis - appears to have returned to baseline - Continue on Seroquel 50 mg BID - PT eval/tx ANNIA: - resolved - creatinine 1.44 --> 0.59. Likely due to poor oral intake. - previously 0.72 on 10/5/17 from previous visit. - UA suggestive of UTI. Urine cx with immature growth - Avoid nephrotoxins. Lisinopril on hold. - continue maintenance fluids for now given poor by mouth intake Urinary retention - Patient came into the ED with indwelling Bridges catheter - continue bridges Hyponatremia - on salt tabs as outpatient 3gm TID - sodium level high end of normal - hold sodium tablets for now - monitor Na level Afib - off anticoagulation secondary to recent ICH - rate controlled - monitor Hypertension - Home dose of lisinopril held at admission - Episodes of hypotension likely due to sepsis. Improved. - Continue to monitor off medications for now. Thrombocytopenia: Chronic. - Appears stable - No active bleeding. DVT Prophylaxis: SCD/Bryan. Discussed with patient, nursing staff and Dr. Dominguez This note was transcribed by jarred Gonzalez. I, Dr. Sinan Rodriguez personally performed the history, physical exam, and medical decision making; and confirmed the accuracy of the information in the transcribed note. Authenticated by Dr. Sinan Rodriguez on 02/12/17 at 10:28. Problem Qualifiers (1) Sepsis: Qualified Codes: A41.9 - Sepsis, unspecified organism (2) UTI (urinary tract infection): Qualified Codes: T83.511A - Infection and inflammatory reaction due to indwelling urethral catheter, initial encounter; N39.0 - Urinary tract infection , site not specified Jina Gonzalez Feb 12, 2017 10:28 Sinan Rodriguez MD Feb 12, 2017 10:28
--- NOTE | 2017-02-12 10:32 | PD.ID.CON ---
History of Present Illness Service ID Consult Requested By Dr Rodriguez Reason for Consult sepsis, UTI Primary Care Physician Ousmane Medrano MD Diagnoses: History of Present Illness 66 yo male quit poor historian History per chart, revewed with dgtr @ b/s Sp recent ICH presented from rehab with fever x 1 day In ER temp 103.8 WBC 14K, bandemia of 19% UA mildly abnorml (7 WBC) urine clx with immature growth Blood clx with GRAM POSITIVE COCCI IN PAIRS AND CHAINS from both sets Started on vancomycin No more fever denies abd pain, no nausea, no vomiting Review of Systems ROS Limitations: Poor Historian Past Family Social History Allergies: Coded Allergies: No Known Allergies (Unverified , 02/10/17) Past Medical History \ HTN, CAD, COPD, sp recent hemarrahic stroke Aortic Stenosis A-fib off Coumadin Past Surgical History sp Aortic Valve Replacement, CABG Hernia Repair Active Ordered Medications Medications where reviewed in EMR Antibiotics Include: vanco Family History Reviewed. Non contributory Social History Pt quit alcohol few weeks ago endorses remote tobacco use no drugs. Physical Exam Vital Signs Vital Signs Date Time Temp Pulse Resp B/P (MAP) Pulse Ox O2 Delivery O2 Flow Rate FiO2 02/12/17 07:34 97.7 81 18 139/70 (93) 96 02/11/17 23:16 98.2 82 20 118/67 (84) 98 02/11/17 19:55 98.2 80 20 124/64 (84) 97 02/11/17 16:06 97.7 81 20 98/54 (69) 98 02/11/17 16:00 73 02/11/17 12:00 71 02/11/17 11:57 97.2 77 18 122/69 (86) 97 Physical Exam CONSTITUTIONAL/GENERAL: This is a thin ederly male patient, in no apparent distress. TUBES/LINES/DRAINS: SKIN: No jaundice, rashes, or lesions. No wounds seen anteriorly. Skin temperature appropriate. Not diaphoretic. No Janeway lesions or splinter hemorrhages HEAD: Atraumatic. Normocephalic. EYES: Pupils equal and round and reactive. No scleral icterus. No injection or drainage. ? 1-2 possible petechia on conjntivae Fundi not examined. ENT: Hearing grossly normal. Nose without bleeding or purulent drainage. Throat without visible erythema, exudates, masses, or lesions. NECK: Trachea midline. Supple, nontender. CARDIOVASCULAR: Regular rate and rhythm + systolic murmur 3/6 with max on aortic sit, no gallops, or rubs. No JVD. Peripheral pulses symmetric. Medial sternotomy scar well healed wth palpable sternal herman RESPIRATORY/CHEST: Symmetric, unlabored respirations. Clear to auscultation. Breath sounds equal bilaterally. No wheezes, rales, or rhonchi. GASTROINTESTINAL: Abdomen soft, non-tender, nondistended. No hepato-splenomegaly , or palpable masses. No guarding. Bowel sounds present. GENITOURINARY: Without palpable bladder distension. Robert catheter in place with faily clear dark yellow urine MUSCULOSKELETAL: Extremities without clubbing, cyanosis, or edema. No joint tenderness or effusion noted. No calf tenderness. No mottling or clubbing. LYMPHATICS: No palpable cervical or supraclavicular adenopathy. NEUROLOGICAL: Awake and alert. Confused. Oriented to self, place. Does not know time. Could not recall President Motor decreased RUE, mves OK BLE and LUE. Follows commands. Speech clear, but somewhat incoherent. Moves all extremities, RUE weak PSYCHIATRIC: No obvious anxiety/depression. no apparent hallucinations or other psychotic thought process. Calm and pleasant Laboratory Laboratory Tests Test 02/12/17 08:55 White Blood Count 8.0 Red Blood Count 3.02 Hemoglobin 9.4 Hematocrit 27.5 Mean Corpuscular Volume 90.9 Mean Corpuscular Hemoglobin 31.0 Mean Corpuscular Hemoglobin Concent 34.1 Red Cell Distribution Width 14.0 Platelet Count 101 Mean Platelet Volume 8.1 Blood Urea Nitrogen 13 Creatinine 0.59 Random Glucose 77 Albumin 2.2 Calcium Level 8.3 Aspartate Amino Transf (AST/SGOT) 44 Alanine Aminotransferase (ALT/SGPT) 31 Sodium Level 143 Potassium Level 3.5 Chloride Level 111 Carbon Dioxide Level 23.4 Anion Gap 9 Estimat Glomerular Filtration Rate 137 Date/Time Source Procedure Growth Status 02/11/17 15:36 Blood Peripheral Aerobic Blood Culture Pending Received 02/11/17 15:36 Blood Peripheral Anaerobic Blood Culture Pending Received 02/10/17 22:30 Nasal Aspirate Influenza Types A,B Antigen (CARRIE) - Final NEGATIVE FOR FLU A AND B ANTIGEN.... Complete 02/10/17 20:15 Urine Catheterized Urine Urine Culture - Preliminary IMMATURE GROWTH - REINCUBATE Resulted Result Diagram: 02/12/17 0855 02/12/1755 Imaging Last Impressions Chest X-Ray 02/10/171948 Signed Impressions: Service Date/Time: Friday, February 10, 2017 19:56 - CONCLUSION: No acute disease. Jaylan Velazquez MD Assessment and Plan Assessment and Plan Sepsis: feer 103, leukocytosis, 19K, bandemia Strep bacteremia / source: endovascular vs Aortic valve prosthesis, r/o PVE UTI cont current abx consult feed grinder for FRANKLIN Maryann Dominguez MD Feb 12, 2017 10:31
[2017-02-12] MEDS: VANCOMYCIN 1,000 MG/NS 250 ML IV SCH ×6 (11:38→23:10)
[2017-02-12] MEDS: TAMSULOSIN HCL 0.4 MG CAP PO SCH (21:42)
[2017-02-13] VITALS: BP 160/74; PULSE 85; RESP 20; TEMP 98.4; O2SAT 98
[2017-02-13 04:00] VITALS: BP 147/72; PULSE 80; RESP 20; TEMP 98.5; O2SAT 99
[2017-02-13 07:55] LABS: BICARBONATE 23.3 MEQ/L (21.0-32.0); POTASSIUM 3.4 MEQ/L (3.5-5.1)
[2017-02-13 08:00] VITALS: PULSE 63
[2017-02-13] MEDS: QUEtiapine FUMARATE 25 MG TAB PO SCH ×2 (09:39→22:21)
[2017-02-13] MEDS: PRAVASTATIN SOD 40 MG TAB PO SCH (09:39)
[2017-02-13] MEDS: FAMOTIDINE 20 MG TAB PO SCH ×2 (09:39→22:21)
[2017-02-13] MEDS: DOCUSATE SODIUM 50 MG/SENNA 8.6 MG TAB PO SCH (09:39)
[2017-02-13] MEDS: SODIUM CHLORIDE 0.9% FLUSH 10 ML FLUSH IV FLUSH SCH ×2 (09:44→22:21)
--- NOTE | 2017-02-13 12:49 | HHI.PR ---
Subjective Remarks Follow-up sepsis/UTI/bacteremia 02/13/17-patient seen and examined, currently afebrile and no acute event overnight Objective Vitals Vital Signs Date Time Temp Pulse Resp B/P (MAP) Pulse Ox O2 Delivery O2 Flow Rate FiO2 02/13/17 04:00 98.5 80 20 147/72 (97) 99 02/13/17 00:00 98.4 85 20 160/74 (102) 98 02/12/17 20:00 72 02/12/17 20:00 98.0 70 20 136/68 (90) 98 02/12/17 18:20 98.2 70 18 141/63 (89) 95 02/12/17 17:16 98.2 70 18 123/63 (83) 97 I/O 02/12/17 02/12/17 02/12/17 02/13/17 02/13/17 02/13/17 07:00 15:00 23:00 07:00 15:00 23:00 Intake Total 550 ml 870 ml Output Total 600 ml 300 ml 400 ml Balance -50 ml -300 ml 470 ml Intake Oral 300 ml 120 ml IV Total 250 ml 750 ml Output Urine Total 600 ml 300 ml 400 ml # Bowel Movements 1 0 0 Result Diagram: 02/12/17 0855 02/13/17 0656 Imaging Last Impressions Chest X-Ray 02/10/171948 Signed Impressions: Service Date/Time: Friday, February 10, 2017 19:56 - CONCLUSION: No acute disease. Jaylan Velazquez MD Objective Remarks GENERAL: NAD SKIN: Warm and dry. HEAD: Normocephalic. EYES: No scleral icterus. No injection or drainage. NECK: Supple, trachea midline. No JVD or lymphadenopathy. CARDIOVASCULAR: Regular rate and rhythm with II/ CARMENZA RESPIRATORY: Breath sounds equal bilaterally. No accessory muscle use. GASTROINTESTINAL: Abdomen soft, non-tender, nondistended. MUSCULOSKELETAL: No cyanosis, or edema. BACK: Nontender without obvious deformity. No CVA tenderness. A/P Problem List: (1) Encephalopathy ICD Code: G93.40 - Encephalopathy, unspecified Status: Resolved (2) Sepsis ICD Code: A41.9 - Sepsis, unspecified organism Status: Acute (3) UTI (urinary tract infection) ICD Code: N39.0 - Urinary tract infection, site not specified Status: Acute (4) Renal insufficiency ICD Code: N28.9 - Disorder of kidney and ureter, unspecified (5) Thrombocytopenia ICD Code: D69.6 - Thrombocytopenia, unspecified (6) Bacteremia due to Gram-positive bacteria ICD Code: R78.81 - Bacteremia Assessment and Plan Patient is a 66-year-old male with primary medical history of HTN, CAD, COPD, recent ICH left temporal, aortic stenosis, s/p aortic valve replacement and A. fib off Coumadin who came into the hospital secondary to altered mental status. Sepsis, severe: Gram positive bacteremia Urinary tract infections Continue with current antibiotics including vancomycin - ID consulted. Appreciate their assistance. Discussed with Dr. Dominguez . Possible valve endocarditis. Consider FRANKLIN. - Continue with IV fluids Leukocytosis-resolved - Monitor as indicated Encephalopathy-resolved as patient now at his baseline - H/o ICH on recent admit 01/29-02/09/17, oriented to person only, per this is baseline. - No focal deficits. - This is possibly due to severe sepsis - appears to have returned to baseline - Continue on Seroquel 50 mg BID - PT eval/tx ANNIA: - resolved - creatinine 1.44 --> 0.59. - previously 0.72 on 02/07/17 from previous visit. - Avoid nephrotoxins. - Hep-Lock IV fluid Urinary retention - Patient came into the ED with indwelling Bridges catheter - continue bridges Hyponatremia - on salt tabs as outpatient 3gm TID - sodium level high end of normal - hold sodium tablets for now - monitor Na level Afib - off anticoagulation secondary to recent ICH - rate controlled - monitor Hypertension - Resume Home dose of lisinopril - Episodes of hypotension likely due to sepsis. Improved. - Continue to monitor off medications for now. Thrombocytopenia: Chronic. - Appears stable - No active bleeding. DVT Prophylaxis: SCD/Bryan. Problem Qualifiers (1) Sepsis: Qualified Codes: A41.9 - Sepsis, unspecified organism (2) UTI (urinary tract infection): Qualified Codes: T83.511A - Infection and inflammatory reaction due to indwelling urethral catheter, initial encounter; N39.0 - Urinary tract infection , site not specified Sinan Rodriguez MD Feb 13, 2017 12:49
[2017-02-13] MEDS: VANCOMYCIN 1,000 MG/NS 250 ML IV SCH ×2 (13:09)
[2017-02-13] MEDS ORDERED: PHENYLEPH/NS 1000 MCG/10 ML SYR ONE (15:20)
[2017-02-13] MEDS ORDERED: PROPOFOL 200 MG/20 ML AMP ONE (15:21)
--- NOTE | 2017-02-13 15:53 | MB ---
cc: SLIME GRAHAM DATE OF CONSULTATION: 02/13/2017 HISTORY OF PRESENT ILLNESS Mr. Riley is a 66-year-old white male with a history of aortic stenosis and aortic valve replacement and coronary bypass. He was admitted with altered mental status. He has developed fevers and tachycardia. He was diagnosed with sepsis. Transesophageal echocardiogram is now requested to evaluate for prosthetic valve endocarditis. PAST MEDICAL HISTORY Positive for: 1. Hypertension. 2. Coronary artery disease. 3. COPD. 4. Intracranial hemorrhage left temporal. 5. Aortic stenosis. 6. Atrial fibrillation, now off Coumadin. 7. Malnutrition. 8. Aortic valve replacement. 9. Coronary artery bypass. 10. Hernia repair. MEDICATIONS Include: 1. Lisinopril. 2. Tamsulosin. 3. Vancomycin. 4. Pepcid. 5. Pravastatin. 6. Seroquel. 7. Albuterol. ALLERGIES None. SOCIAL HISTORY The patient does not smoke, does not drink alcohol. FAMILY HISTORY Family history is negative for heart disease. Review of systems is otherwise negative. PHYSICAL EXAMINATION VITAL SIGNS: Blood pressure 147/72, pulse 80 and regular. HEENT: Negative. NECK: 2+ carotid upstrokes. No bruits. LUNGS: Clear. HEART: Regular with no murmur, gallop or rub. ABDOMEN: Soft. No bruits. EXTREMITIES: Without edema. 1-2+ distal pulses. NEUROLOGIC: Grossly nonfocal. EKG Reviewed and showed mild sinus tachycardia with normal axis and intervals. LABORATORY DATA Hemoglobin 9.4, potassium 3.4, creatinine 0.44, AST 44, ALT 51. Troponin 0.03. DIAGNOSIS 1. Sepsis. 2. History of aortic valve replacement for aortic stenosis. 3. Hypertension. 4. COPD. 5. History of hemorrhagic stroke. DISPOSITION Mr. Riley will be scheduled for transesophageal echocardiogram to evaluate for prosthetic valve endocarditis. MD BRIELLE Elder/VENECIA /2:39 PM /3:10 PM
[2017-02-13 16:00] VITALS: BP 154/75; PULSE 66; RESP 20; TEMP 97.5; O2SAT 99
[2017-02-13 20:00] VITALS: BP 103/67; PULSE 71; PULSE 75; RESP 20; TEMP 98.4; O2SAT 95
[2017-02-13] MEDS: TAMSULOSIN HCL 0.4 MG CAP PO SCH (22:20)
[2017-02-14] VITALS (9 sets, daily range): BP systolic 116–157; BP diastolic 60–77; PULSE 65–72; RESP 16–20; TEMP 97.4–99; O2SAT 93–96
[2017-02-14] MEDS: VANCOMYCIN 1,000 MG/NS 250 ML IV SCH ×4 (01:06→12:31)
[2017-02-14] MEDS: PRAVASTATIN SOD 40 MG TAB PO SCH (09:25)
[2017-02-14] MEDS: FAMOTIDINE 20 MG TAB PO SCH ×2 (09:25→21:20)
[2017-02-14] MEDS: QUEtiapine FUMARATE 25 MG TAB PO SCH ×2 (09:26→21:19)
[2017-02-14] MEDS: SODIUM CHLORIDE 0.9% FLUSH 10 ML FLUSH IV FLUSH SCH ×2 (09:26→21:23)
[2017-02-14] MEDS: LISINOPRIL 10 MG TAB PO SCH (09:26)
--- NOTE | 2017-02-14 11:54 | HHI.PR ---
Subjective Remarks Follow-up sepsis/UTI/bacteremia 02/13/17-patient seen and examined, currently afebrile and no acute event overnight 02/14/17-patient seen and examined, stable, afebrile. Patient was seen by cardiology and plan for FRANKLIN Objective Vitals Vital Signs Date Time Temp Pulse Resp B/P (MAP) Pulse Ox O2 Delivery O2 Flow Rate FiO2 02/14/17 08:05 67 02/14/17 07:15 Room Air 02/14/17 04:00 99.0 71 16 122/60 (80) 93 02/14/17 00:00 97.5 72 20 131/61 (84) 95 02/13/17 20:00 71 02/13/17 20:00 Room Air 02/13/17 20:00 98.4 75 20 103/67 (79) 95 02/13/17 16:00 97.5 66 20 154/75 (101) 99 I/O 02/13/17 02/13/17 02/13/17 02/14/17 02/14/17 02/14/17 06:59 14:59 22:59 06:59 14:59 22:59 Intake Total 870 ml 480 ml 490 ml Output Total 400 ml 450 ml 2000 ml Balance 470 ml 30 ml -1510 ml Intake Oral 120 ml 480 ml 240 ml IV Total 750 ml 250 ml Output Urine Total 400 ml 450 ml 2000 ml # Bowel Movements 0 0 0 Result Diagram: 02/12/17 0855 02/13/17 0656 Objective Remarks GENERAL: NAD SKIN: Warm and dry. HEAD: Normocephalic. EYES: No scleral icterus. No injection or drainage. NECK: Supple, trachea midline. No JVD or lymphadenopathy. CARDIOVASCULAR: Regular rate and rhythm with II/ CARMENZA RESPIRATORY: Breath sounds equal bilaterally. No accessory muscle use. GASTROINTESTINAL: Abdomen soft, non-tender, nondistended. MUSCULOSKELETAL: No cyanosis, or edema. BACK: Nontender without obvious deformity. No CVA tenderness. A/P Problem List: (1) Encephalopathy ICD Code: G93.40 - Encephalopathy, unspecified Status: Resolved (2) Sepsis ICD Code: A41.9 - Sepsis, unspecified organism Status: Acute (3) UTI (urinary tract infection) ICD Code: N39.0 - Urinary tract infection, site not specified Status: Acute (4) Renal insufficiency ICD Code: N28.9 - Disorder of kidney and ureter, unspecified (5) Thrombocytopenia ICD Code: D69.6 - Thrombocytopenia, unspecified (6) Bacteremia due to Gram-positive bacteria ICD Code: R78.81 - Bacteremia Assessment and Plan Patient is a 66-year-old male with primary medical history of HTN, CAD, COPD, recent ICH left temporal, aortic stenosis, s/p aortic valve replacement and A. fib off Coumadin who came into the hospital secondary to altered mental status. Sepsis, severe: Gram positive bacteremia Urinary tract infections Continue with current antibiotics including vancomycin - ID consulted. Appreciate their assistance. - Cardiology input appreciated and plan for FRANKLIN Leukocytosis-resolved - Monitor as indicated Encephalopathy-resolved as patient now at his baseline - H/o ICH on recent admit 01/29-02/09/17, oriented to person only, per this is baseline. - No focal deficits. - This is possibly due to severe sepsis - appears to have returned to baseline - Continue on Seroquel 50 mg BID - PT eval/tx ANNIA: - resolved - creatinine 1.44 --> 0.59. - previously 0.72 on 02/07/17 from previous visit. - Avoid nephrotoxins. - Hep-Lock IV fluid Urinary retention - Patient came into the ED with indwelling Bridges catheter - continue bridges Hyponatremia - on salt tabs as outpatient 3gm TID - sodium level high end of normal - hold sodium tablets for now - monitor Na level Afib - off anticoagulation secondary to recent ICH - rate controlled - monitor Hypertension - Continue Home dose of lisinopril - Episodes of hypotension likely due to sepsis. Improved. - Continue to monitor off medications for now. Thrombocytopenia: Chronic. - Appears stable - No active bleeding. DVT Prophylaxis: SCD/Bryan. Problem Qualifiers (1) Sepsis: Qualified Codes: A41.9 - Sepsis, unspecified organism (2) UTI (urinary tract infection): Qualified Codes: T83.511A - Infection and inflammatory reaction due to indwelling urethral catheter, initial encounter; N39.0 - Urinary tract infection , site not specified Sinan Rodriguez MD Feb 14, 2017 11:54
--- NOTE | 2017-02-14 12:54 | PD.CARD.PN ---
Subjective Subjective Remarks No CP or SOB, FRANKLIN yest with no evidence of prosthetic valve endocarditis Objective Medications Current Medications Medications (Trade) Dose Ordered Sig/Maia Route Start Time Stop Time Status Last Admin (Duoneb Neb) 1 ampule Q2HR NEB PRN NEB 02/10/17 22:45 (NS Flush) 2 ml UNSCH PRN IV FLUSH 02/10/17 22:45 (NS Flush) 2 ml BID IV FLUSH 02/11/17 09:00 02/14/17 09:26 (Zofran Inj) 4 mg Q6H PRN IVP 02/10/17 22:45 (Tylenol) 650 mg Q6H PRN PO 02/10/17 22:45 (Morphine Inj) 2 mg Q3H PRN IV PUSH 02/10/17 22:45 (Roxicodone) 5 mg Q4H PRN PO 02/10/17 22:45 (Milk Of Magnesia Liq) 30 ml Q12H PRN PO 02/10/17 22:45 (Dulcolax Supp) 10 mg DAILY PRN RECTAL 02/10/17 22:45 (Pepcid) 10 mg BID PO 02/11/17 09:00 02/14/17 09:25 (Pravachol) 40 mg DAILY PO 02/11/17 09:00 02/14/17 09:25 (SEROquel) 50 mg BID PO 02/11/17 09:00 02/14/17 09:26 (Sodium Chloride) 3 gm TID PO 02/11/17 09:00 Future Hold 02/12/17 09:30 (Flomax) 0.4 mg HS PO 02/11/17 21:00 02/13/17 22:20 Vancomycin HCl 1000 mg/Sodium Chloride 250 ml @ 250 mls/hr Q12H IV 02/11/17 12:00 02/14/17 12:31 (Prinivil) 10 mg DAILY PO 02/14/17 09:00 02/14/17 09:26 Vital Signs / I&O Vital Signs Date Time Temp Pulse Resp B/P (MAP) Pulse Ox O2 Delivery O2 Flow Rate FiO2 02/14/17 08:05 67 02/14/17 07:15 Room Air 02/14/17 04:00 99.0 71 16 122/60 (80) 93 02/14/17 00:00 97.5 72 20 131/61 (84) 95 02/13/17 20:00 71 02/13/17 20:00 Room Air 02/13/17 20:00 98.4 75 20 103/67 (79) 95 02/13/17 16:00 97.5 66 20 154/75 (101) 99 I/O 02/13/17 02/13/17 02/13/17 02/14/17 02/14/17 02/14/17 07:00 15:00 23:00 07:00 15:00 23:00 Intake Total 870 ml 480 ml 490 ml Output Total 400 ml 450 ml 2000 ml Balance 470 ml 30 ml -1510 ml Intake Oral 120 ml 480 ml 240 ml IV Total 750 ml 250 ml Output Urine Total 400 ml 450 ml 2000 ml # Bowel Movements 0 0 0 Physical Exam GENERAL: In NAD. SKIN: Warm and dry. HEAD: Normocephalic. EYES: No scleral icterus. No injection or drainage. NECK: Supple, trachea midline. No JVD or lymphadenopathy. CARDIOVASCULAR: Regular rate and rhythm with 1/6 syst murmur, no gallops or rubs. RESPIRATORY: Breath sounds equal bilaterally. No accessory muscle use. GASTROINTESTINAL: Abdomen soft, non-tender, nondistended. MUSCULOSKELETAL: No cyanosis, or edema. Laboratory Date/Time Source Procedure Growth Status 02/11/17 15:36 Blood Peripheral Aerobic Blood Culture - Preliminary NO GROWTH IN 3 DAYS Resulted 02/11/17 15:36 Blood Peripheral Anaerobic Blood Culture - Preliminary NO GROWTH IN 3 DAYS Resulted 02/10/17 22:30 Nasal Aspirate Influenza Types A,B Antigen (CARRIE) - Final NEGATIVE FOR FLU A AND B ANTIGEN.... Complete 02/10/17 20:15 Urine Catheterized Urine Urine Culture - Preliminary Staphylococcus Epidermidis Group D Enterococcus Resulted Assessment and Plan Problem List: (1) Sepsis ICD Codes: A41.9 - Sepsis, unspecified organism Status: Acute (2) History of prosthetic aortic valve ICD Codes: Z95.2 - Presence of prosthetic heart valve (3) COPD (chronic obstructive pulmonary disease) ICD Codes: J44.9 - Chronic obstructive pulmonary disease, unspecified Assessment and Plan No new cardiac issues. FRANKLIN with no evidence of prosthetic valve endocarditis. Continue current program as per ID. Increase activity. Problem Qualifiers (1) Sepsis: Qualified Codes: A41.9 - Sepsis, unspecified organism Samantha Robledo MD Feb 14, 2017 12:54
--- NOTE | 2017-02-14 14:27 | HHI.IDPN ---
Subjective Subjective Remarks FRANKLIN negative for vegetation - dw Dr Jim afebrile no new c/o repeat BC negative Antibiotics vancomycin Allergies: Coded Allergies: No Known Allergies (Unverified , 02/10/17) Objective . Vital Signs Date Time Temp Pulse Resp B/P (MAP) Pulse Ox O2 Delivery O2 Flow Rate FiO2 02/14/17 12:00 97.4 69 18 139/77 (97) 95 02/14/17 08:05 67 02/14/17 08:00 98.8 66 16 116/62 (80) 94 02/14/17 07:15 Room Air 02/14/17 04:00 99.0 71 16 122/60 (80) 93 02/14/17 00:00 97.5 72 20 131/61 (84) 95 02/13/17 20:00 71 02/13/17 20:00 Room Air 02/13/17 20:00 98.4 75 20 103/67 (79) 95 02/13/17 16:00 97.5 66 20 154/75 (101) 99 . Laboratory Tests Test 02/13/17 06:56 Blood Urea Nitrogen 8 MG/DL Creatinine 0.44 MG/DL Random Glucose 75 MG/DL Calcium Level 8.5 MG/DL Sodium Level 144 MEQ/L Potassium Level 3.4 MEQ/L Chloride Level 110 MEQ/L Carbon Dioxide Level 23.3 MEQ/L Anion Gap 11 MEQ/L Estimat Glomerular Filtration Rate 193 ML/MIN Microbiology Date/Time Source Procedure Growth Status 02/11/17 15:36 Blood Peripheral Aerobic Blood Culture - Preliminary NO GROWTH IN 3 DAYS Resulted 02/11/17 15:36 Blood Peripheral Anaerobic Blood Culture - Preliminary NO GROWTH IN 3 DAYS Resulted 02/11/17 15:30 Blood Peripheral Aerobic Blood Culture - Preliminary NO GROWTH IN 3 DAYS Resulted 02/11/17 15:30 Blood Peripheral Anaerobic Blood Culture - Preliminary NO GROWTH IN 3 DAYS Resulted Imaging Last Impressions Chest X-Ray 02/10/171948 Signed Impressions: Service Date/Time: Friday, February 10, 2017 19:56 - CONCLUSION: No acute disease. Jaylan Velazquez MD Physical Exam CONSTITUTIONAL/GENERAL: This is a thin ederly male patient, in no apparent distress. TUBES/LINES/DRAINS: SKIN: No jaundice, rashes, or lesions. No wounds seen anteriorly. Skin temperature appropriate. Not diaphoretic. No [place] lesions or splinter hemorrhages EYES: Pupils equal and round and reactive. No scleral icterus. No injection or drainage. ? 1-2 possible petechia on conjntivae Fundi not examined. CARDIOVASCULAR: Regular rate and rhythm + systolic murmur 3/6 with max on aortic sit, no gallops, or rubs. No JVD. Peripheral pulses symmetric. Medial sternotomy scar well healed wth palpable sternal herman RESPIRATORY/CHEST: Symmetric, unlabored respirations. Clear to auscultation. Breath sounds equal bilaterally. No wheezes, rales, or rhonchi. GASTROINTESTINAL: Abdomen soft, non-tender, nondistended. No hepato-splenomegaly , or palpable masses. No guarding. Bowel sounds present. GENITOURINARY: Without palpable bladder distension. Robert catheter in place with faily clear dark yellow urine NEUROLOGICAL: Awake and alert. Confused. follows commands PSYCHIATRIC: No obvious anxiety/depression. no apparent hallucinations or other psychotic thought process. Calm and pleasant Assessment & Plan Remarks Sepsis: feer 103, leukocytosis, 19K, bandemia Strep bacteremia / source: endovascular vs Aortic valve prosthesis, no e/o PVE on FRANKLIN UTI, growing coag neg staph and entorcoccus ? contaminant cont vancomycn fu ID/S on enterococcus in the urine - anticipate dc on 2 week on IV abx dw Dr Hernán Dominguez,Maryann Krueger MD Feb 14, 2017 14:27
[2017-02-14] MEDS: TAMSULOSIN HCL 0.4 MG CAP PO SCH (21:19)
[2017-02-15] VITALS: BP 107/60; PULSE 67; RESP 16; TEMP 97.4; O2SAT 97
[2017-02-15] MEDS: VANCOMYCIN 1,000 MG/NS 250 ML IV SCH ×4 (00:51→12:35)
[2017-02-15 04:00] VITALS: BP 135/74; PULSE 65; RESP 18; TEMP 97.9; O2SAT 96
[2017-02-15] MEDS: SODIUM CHLORIDE 0.9% FLUSH 10 ML FLUSH IV FLUSH SCH ×2 (07:37→22:05)
[2017-02-15 08:00] VITALS: BP 113/59; PULSE 66; RESP 18; TEMP 96.7; O2SAT 96
[2017-02-15] MEDS: FAMOTIDINE 20 MG TAB PO SCH ×2 (08:13→22:04)
[2017-02-15] MEDS: PRAVASTATIN SOD 40 MG TAB PO SCH (08:13)
[2017-02-15] MEDS: QUEtiapine FUMARATE 25 MG TAB PO SCH ×2 (08:13→22:04)
[2017-02-15] MEDS: LISINOPRIL 10 MG TAB PO SCH (08:13)
--- NOTE | 2017-02-15 10:08 | HHI.PR ---
Subjective Remarks Follow-up sepsis/UTI/bacteremia 02/13/17-patient seen and examined, currently afebrile and no acute event overnight 02/14/17-patient seen and examined, stable, afebrile. Patient was seen by cardiology and plan for FRANKLIN 02/15/17-patient seen and examined, negative FRANKLIN. Afebrile in no acute event overnight. Taking by mouth without any competition nausea and vomiting. Objective Vitals Vital Signs Date Time Temp Pulse Resp B/P (MAP) Pulse Ox O2 Delivery O2 Flow Rate FiO2 02/15/17 08:00 96.7 66 18 113/59 (77) 96 02/15/17 04:00 97.9 65 18 135/74 (94) 96 02/15/17 00:00 97.4 67 16 107/60 (76) 97 02/14/17 22:00 Room Air 02/14/17 20:00 97.4 66 16 134/71 (92) 96 02/14/17 19:22 70 02/14/17 16:55 98.6 65 16 157/71 (99) 95 02/14/17 16:00 98.7 66 16 143/67 (92) 96 02/14/17 12:00 97.4 69 18 139/77 (97) 95 I/O 02/14/17 02/14/17 02/14/17 02/15/17 02/15/17 02/15/17 07:00 15:00 23:00 07:00 15:00 23:00 Intake Total 490 ml 240 ml 490 ml Output Total 2000 ml Balance -1510 ml 240 ml 490 ml Intake Oral 240 ml 240 ml 240 ml IV Total 250 ml 250 ml Output Urine Total 2000 ml # Voids 3 4 # Bowel Movements 0 0 0 Result Diagram: 02/12/17 0855 02/13/17 0656 Imaging Last Impressions Chest X-Ray 02/10/171948 Signed Impressions: Service Date/Time: Friday, February 10, 2017 19:56 - CONCLUSION: No acute disease. Jaylan Velazquez MD Objective Remarks GENERAL: NAD SKIN: Warm and dry. HEAD: Normocephalic. EYES: No scleral icterus. No injection or drainage. NECK: Supple, trachea midline. No JVD or lymphadenopathy. CARDIOVASCULAR: Regular rate and rhythm with II/ CARMENZA RESPIRATORY: Breath sounds equal bilaterally. No accessory muscle use. GASTROINTESTINAL: Abdomen soft, non-tender, nondistended. MUSCULOSKELETAL: No cyanosis, or edema. BACK: Nontender without obvious deformity. No CVA tenderness. A/P Problem List: (1) Encephalopathy ICD Code: G93.40 - Encephalopathy, unspecified Status: Resolved (2) Sepsis ICD Code: A41.9 - Sepsis, unspecified organism Status: Acute (3) UTI (urinary tract infection) ICD Code: N39.0 - Urinary tract infection, site not specified Status: Acute (4) Renal insufficiency ICD Code: N28.9 - Disorder of kidney and ureter, unspecified (5) Thrombocytopenia ICD Code: D69.6 - Thrombocytopenia, unspecified (6) Bacteremia due to Gram-positive bacteria ICD Code: R78.81 - Bacteremia Assessment and Plan Patient is a 66-year-old male with primary medical history of HTN, CAD, COPD, recent ICH left temporal, aortic stenosis, s/p aortic valve replacement and A. fib off Coumadin who came into the hospital secondary to altered mental status. Sepsis, severe: Strep bacteremia Urinary tract infections Continue with current antibiotics including vancomycin; anticipate dc on 2 week on IV abx - ID consulted. Appreciate their assistance. - Cardiology input appreciated and negative FRANKLIN Leukocytosis-resolved - Monitor as indicated Encephalopathy-resolved as patient now at his baseline - H/o ICH on recent admit 01/29-02/09/17, oriented to person only, per this is baseline. - No focal deficits. - This is possibly due to severe sepsis - appears to have returned to baseline - Continue on Seroquel 50 mg BID - PT eval/tx ANNIA: - resolved - creatinine 1.44 --> 0.59. - previously 0.72 on 02/07/17 from previous visit. - Avoid nephrotoxins. Urinary retention - Patient came into the ED with indwelling Bridges catheter - continue bridges Hyponatremia-resolved - on salt tabs as outpatient 3gm TID - sodium level high end of normal - hold sodium tablets for now - monitor Na level Afib - off anticoagulation secondary to recent ICH - rate controlled - monitor Hypertension - Continue Home dose of lisinopril - Episodes of hypotension likely due to sepsis. Improved. - Continue to monitor off medications for now. Thrombocytopenia: Chronic. - Appears stable - No active bleeding. DVT Prophylaxis: SCD/Bryan. Problem Qualifiers (1) Sepsis: Qualified Codes: A41.9 - Sepsis, unspecified organism (2) UTI (urinary tract infection): Qualified Codes: T83.511A - Infection and inflammatory reaction due to indwelling urethral catheter, initial encounter; N39.0 - Urinary tract infection , site not specified Sinan Rodriguez MD Feb 15, 2017 10:08
[2017-02-15 11:54] VITALS: BP 121/65; PULSE 94; RESP 18; TEMP 97.6; O2SAT 95
--- NOTE | 2017-02-15 12:52 | HHI.IDPN ---
Subjective Subjective Remarks FRANKLIN negative for vegetation - dw Dr Jim afebrile co back and neck pain repeat BC negative Antibiotics vancomycin Allergies: Coded Allergies: No Known Allergies (Unverified , 02/10/17) Objective . Vital Signs Date Time Temp Pulse Resp B/P (MAP) Pulse Ox O2 Delivery O2 Flow Rate FiO2 02/15/17 11:54 97.6 94 18 121/65 (83) 95 02/15/17 08:00 96.7 66 18 113/59 (77) 96 02/15/17 04:00 97.9 65 18 135/74 (94) 96 02/15/17 00:00 97.4 67 16 107/60 (76) 97 02/14/17 22:00 Room Air 02/14/17 20:00 97.4 66 16 134/71 (92) 96 02/14/17 19:22 70 02/14/17 16:55 98.6 65 16 157/71 (99) 95 02/14/17 16:00 98.7 66 16 143/67 (92) 96 Imaging Last Impressions Chest X-Ray 02/10/171948 Signed Impressions: Service Date/Time: Friday, February 10, 2017 19:56 - CONCLUSION: No acute disease. Jaylan Velazquez MD Physical Exam CONSTITUTIONAL/GENERAL: This is a thin ederly male patient, in no apparent distress. TUBES/LINES/DRAINS: SKIN: No jaundice, rashes, or lesions. No wounds seen anteriorly. Skin temperature appropriate. Not diaphoretic. No Jan[place]ay lesions or splinter hemorrhages EYES: Pupils equal and round and reactive. No scleral icterus. No injection or drainage. ? 1-2 possible petechia on conjntivae Fundi not examined. CARDIOVASCULAR: Regular rate and rhythm + systolic murmur 3/6 with max on aortic sit, no gallops, or rubs. No JVD. Peripheral pulses symmetric. Medial sternotomy scar well healed wth palpable sternal herman RESPIRATORY/CHEST: Symmetric, unlabored respirations. Clear to auscultation. Breath sounds equal bilaterally. No wheezes, rales, or rhonchi. GASTROINTESTINAL: Abdomen soft, non-tender, nondistended. No hepato-splenomegaly , or palpable masses. No guarding. Bowel sounds present. GENITOURINARY: Without palpable bladder distension. NEUROLOGICAL: Awake and alert. Confused. follows commands PSYCHIATRIC: No obvious anxiety/depression. no apparent hallucinations or other psychotic thought process. Calm and pleasant Assessment & Plan Remarks Sepsis: feer 103, leukocytosis, 19K, bandemia Strep bacteremia / source: endovascular vs Aortic valve prosthesis, no e/o PVE on FRANKLIN BAck pain - r/o spine infx in the settings of bactremia UTI, growing coag neg staph and entorcoccus ? contaminant cont vancomycn - MRI C and T spine fu ID/S on enterococcus in the urine -if MRI negative anticipate dc on 2 week on IV abx (CFTX) Maryann Dominguez MD Feb 15, 2017 12:52
[2017-02-15 15:39] VITALS: BP 123/65; PULSE 66; RESP 18; TEMP 97.9; O2SAT 97
--- NOTE | 2017-02-15 16:24 | PD.CARD.PN ---
Subjective Subjective Remarks No CP or SOB, FRANKLIN yest no evidence of prosthetic valve endocarditis Objective Medications Current Medications Medications (Trade) Dose Ordered Sig/Maia Route Start Time Stop Time Status Last Admin (Duoneb Neb) 1 ampule Q2HR NEB PRN NEB 02/10/17 22:45 (NS Flush) 2 ml UNSCH PRN IV FLUSH 02/10/17 22:45 (NS Flush) 2 ml BID IV FLUSH 02/11/17 09:00 02/15/17 07:37 (Zofran Inj) 4 mg Q6H PRN IVP 02/10/17 22:45 (Tylenol) 650 mg Q6H PRN PO 02/10/17 22:45 (Morphine Inj) 2 mg Q3H PRN IV PUSH 02/10/17 22:45 (Roxicodone) 5 mg Q4H PRN PO 02/10/17 22:45 (Milk Of Magnesia Liq) 30 ml Q12H PRN PO 02/10/17 22:45 (Dulcolax Supp) 10 mg DAILY PRN RECTAL 02/10/17 22:45 (Pepcid) 10 mg BID PO 02/11/17 09:00 02/15/17 08:13 (Pravachol) 40 mg DAILY PO 02/11/17 09:00 02/15/17 08:13 (SEROquel) 50 mg BID PO 02/11/17 09:00 02/15/17 08:13 (Sodium Chloride) 3 gm TID PO 02/11/17 09:00 Future Hold 02/12/17 09:30 (Flomax) 0.4 mg HS PO 02/11/17 21:00 02/14/17 21:19 Vancomycin HCl 1000 mg/Sodium Chloride 250 ml @ 250 mls/hr Q12H IV 02/11/17 12:00 02/15/17 12:35 (Prinivil) 10 mg DAILY PO 02/14/17 09:00 02/15/17 08:13 Vital Signs / I&O Vital Signs Date Time Temp Pulse Resp B/P (MAP) Pulse Ox O2 Delivery O2 Flow Rate FiO2 02/15/17 15:39 97.9 66 18 123/65 (84) 97 02/15/17 15:22 Room Air 02/15/17 11:54 97.6 94 18 121/65 (83) 95 1013/17 08:00 96.7 66 18 113/59 (77) 96 02/15/17 04:00 97.9 65 18 135/74 (94) 96 02/15/17 00:00 97.4 67 16 107/60 (76) 97 02/14/17 22:00 Room Air 02/14/17 20:00 97.4 66 16 134/71 (92) 96 02/14/17 19:22 70 02/14/17 16:55 98.6 65 16 157/71 (99) 95 I/O 02/14/17 02/14/17 02/14/17 02/15/17 02/15/17 02/15/17 07:00 15:00 23:00 07:00 15:00 23:00 Intake Total 490 ml 240 ml 490 ml 600 ml 250 ml Output Total 2000 ml Balance -1510 ml 240 ml 490 ml 600 ml 250 ml Intake Oral 240 ml 240 ml 240 ml 600 ml IV Total 250 ml 250 ml 250 ml Output Urine Total 2000 ml # Voids 3 4 3 # Bowel Movements 0 0 0 1 Physical Exam GENERAL: In NAD. SKIN: Warm and dry. HEAD: Normocephalic. EYES: No scleral icterus. No injection or drainage. NECK: Supple, trachea midline. No JVD or lymphadenopathy. CARDIOVASCULAR: Regular rate and rhythm with 1/6 syst murmur, no gallops or rubs. RESPIRATORY: Breath sounds equal bilaterally. No accessory muscle use. GASTROINTESTINAL: Abdomen soft, non-tender, nondistended. MUSCULOSKELETAL: No cyanosis, or edema. Assessment and Plan Problem List: (1) Sepsis ICD Codes: A41.9 - Sepsis, unspecified organism Status: Acute (2) History of prosthetic aortic valve ICD Codes: Z95.2 - Presence of prosthetic heart valve (3) COPD (chronic obstructive pulmonary disease) ICD Codes: J44.9 - Chronic obstructive pulmonary disease, unspecified Assessment and Plan No new cardiac issues, remains asymptomatic. FRANKLIN with no evidence of prosthetic valve endocarditis and normal function of aortic valve prosthesis. Continue current program as per ID. Increase activity. Problem Qualifiers (1) Sepsis: Qualified Codes: A41.9 - Sepsis, unspecified organism Samantha Robledo MD Feb 15, 2017 16:24
--- NOTE | 2017-02-15 19:56 | RADRPT ---
EXAM DATE/TIME: 02/15/2017 18:12 [facility] COMPARISON: No previous studies available for comparison. INDICATIONS : Pain. MEDICAL HISTORY : Chronic obstructive pulmonary disease. Hypertension. SURGICAL HISTORY : CABG Inguinal hernia repair. Aortic valve replacement. ENCOUNTER: Initial ACUITY: 1 day PAIN SCORE: 0/10 LOCATION: [facility] TECHNIQUE: Multiplanar multisequence MRI of the thoracic spine was performed. FINDINGS: VERTEBRA: Normal vertebral body height. Homogeneous marrow signal. ALIGNMENT: Normal. CORD: Normal position and configuration. T1-T2: Normal. T2-T3: The thecal sac has a normal diameter. No evidence of disc bulge or protrusion. T3-T4: The thecal sac has a normal diameter. No evidence of disc bulge or protrusion. T4-T5: The thecal sac has a normal diameter. No evidence of disc bulge or protrusion. T5-T6: The thecal sac has a normal diameter. No evidence of disc bulge or protrusion. T6-T7: The thecal sac has a normal diameter. No evidence of disc bulge or protrusion. T7-T8: The thecal sac has a normal diameter. No evidence of disc bulge or protrusion. T8-T9: The thecal sac has a normal diameter. No evidence of disc bulge or protrusion. T9-T10: The thecal sac has a normal diameter. No evidence of disc bulge or protrusion. T10-T11: The thecal sac has a normal diameter. No evidence of disc bulge or protrusion. T11-T12: The thecal sac has a normal diameter. No evidence of disc bulge or protrusion. T12-L1: The thecal sac has a normal diameter. No evidence of disc bulge or protrusion. CONCLUSION: Normal examination. Ousmane Valdovinos MD on February 15, 2017 at 19:54 Board Certified Radiologist. This report was verified electronically.
[2017-02-15 20:00] VITALS: BP 159/70; PULSE 68; RESP 19; TEMP 98.5; O2SAT 95
--- NOTE | 2017-02-15 21:37 | RADRPT ---
EXAM DATE/TIME: 02/15/2017 18:12 [place] COMPARISON: No previous studies available for comparison. INDICATIONS : Pain. MEDICAL HISTORY : Hypertension. Chronic obstructive pulmonary disease. SURGICAL HISTORY : CABG Umbilical hernia repair. Aortic valve replacement. ENCOUNTER: Initial ACUITY: 1 day PAIN SCORE: 0/10 LOCATION: [facility] TECHNIQUE: Multiplanar, multisequence MRI examination of the cervical spine was performed. FINDINGS: VERTEBRAE: The cervical vertebral bodies appear normal in height. They are normally aligned. Th ere appears to be some chronic anterior osteophytes at the C5-C6 level. There is some focal increase d signal seen at the tip of the dens. This could be related to some sclerosis. ALIGNMENT: No evidence of subluxation. CORD: Normal configuration and signal. POST FOSSA: The cerebellar tonsils are normal in position. C2-C3: Disc space is intact. There is no spinal stenosis and the neural foramina are normal. There is facet hypertrophy being worse on the left. C3-C4: Disc space is intact. There is no spinal stenosis and the neural foramina are normal. There is bilateral facet hypertrophy. C4-C5: The posterior disc margin appears grossly intact. Significant stenosis is not appreciated. T he neural foramina are normal. There is mild facet hypertrophy. C5-C6: There is increased signal within the disc space. Disc demonstrates bright signal on the T2 w eighted images. Disc space is narrowed. There is chronic change at the inferior aspect of C5 and the superior aspect of C6. Significant narrowing of the thecal sac is not clearly appreciated. There i s uncovertebral hypertrophy on the right. There is narrowing at the right neural foramina. The left neural foramina appears grossly intact. C6-C7: Disc demonstrates decreased height. There is minimal bulging. Significant narrowing of the thecal sac is not clearly appreciated. There is uncovertebral hypertrophy particularly on the right. Some neural foramina narrowing may be present on the right. C7-T1: The thecal sac has a normal configuration. There is no evidence of disc herniation or spinal canal stenosis. The neural foramina are patent bilaterally. CONCLUSION: 1. Chronic change throughout the cervical spine as described above. 2. Increased signal within the C5-C6 disc. This could represent fluid. The endplates appear preserv ed and normal. This finding is nonspecific. With the endplates being smooth, well defined, and inta ct, discitis is thought not likely. However, this should be correlated with the patient's clinical h istory and follow up if necessary. Ousmane Valdovinos MD on February 15, 2017 at 19:41 Board Certified Radiologist. This report was verified electronically.
[2017-02-15] MEDS: TAMSULOSIN HCL 0.4 MG CAP PO SCH (22:04)
[2017-02-16] VITALS (7 sets, daily range): BP systolic 121–155; BP diastolic 58–77; PULSE 58–70; RESP 16–19; TEMP 97–98.2; O2SAT 95–99
[2017-02-16] MEDS: VANCOMYCIN 1,000 MG/NS 250 ML IV SCH ×6 (01:39→22:58)
[2017-02-16] MEDS: SODIUM CHLORIDE 0.9% FLUSH 10 ML FLUSH IV FLUSH SCH ×2 (07:25→19:56)
--- NOTE | 2017-02-16 08:07 | HHI.PR ---
Subjective Remarks Patient seen and examined this morning. Bowels are stable and the patient is afebrile. He is without complaints or concerns this am. Denies SOB or active chest pain. Tolerating his diet. States he walks around sometimes. Lives with friends. Objective Vital Signs Date Time Temp Pulse Resp B/P (MAP) Pulse Ox O2 Delivery O2 Flow Rate FiO2 02/16/17 04:00 98.2 61 16 121/58 (79) 97 02/16/17 00:00 97.7 70 18 143/75 (97) 95 02/15/17 20:00 Room Air 02/15/17 20:00 68 02/15/17 20:00 98.5 68 19 159/70 (99) 95 02/15/17 15:39 97.9 66 18 123/65 (84) 97 02/15/17 15:22 Room Air 02/15/17 11:54 97.6 94 18 121/65 (83) 95 02/15/17 08:00 96.7 66 18 113/59 (77) 96 I/O 02/15/17 02/15/17 02/15/17 02/16/17 02/16/17 02/16/17 07:00 15:00 23:00 07:00 15:00 23:00 Intake Total 490 ml 600 ml 250 ml 730 ml Balance 490 ml 600 ml 250 ml 730 ml Intake Oral 240 ml 600 ml 480 ml IV Total 250 ml 250 ml 250 ml # Voids 4 3 2 # Bowel Movements 0 1 0 Result Diagram: 02/12/17 0855 02/13/17 0656 Imaging Last Impressions Thoracic Spine MRI 02/15/17 0000 Signed Impressions: Service Date/Time: Wednesday, February 15, 2017 18:12 - CONCLUSION: Normal examination. Ousmane Valdovinos MD Cervical Spine MRI 02/15/17 0000 Signed Impressions: Service Date/Time: Wednesday, February 15, 2017 18:12 - CONCLUSION: 1. Chronic change throughout the cervical spine as described above. 2. Increased signal within the C5-C6 disc. This could represent fluid. The endplates appear preserved and normal. This finding is nonspecific. With the endplates being smooth, well defined, and intact, discitis is thought not likely. However, this should be correlated with the patient's clinical history and follow up if necessary. Ousmane Valdovinos MD Chest X-Ray 02/10/171948 Signed Impressions: Service Date/Time: Friday, February 10, 2017 19:56 - CONCLUSION: No acute disease. Jaylan Velazquez MD Objective Remarks GENERAL: well appearing nad SKIN: Warm and dry. HEAD: Normocephalic. EYES: No scleral icterus. No injection or drainage. NECK: Supple, trachea midline. No JVD or lymphadenopathy. CARDIOVASCULAR: CARMENZA heard over aortic and pulmonic area, rhythm appears regular RESPIRATORY: Breath sounds equal bilaterally. No accessory muscle use. GASTROINTESTINAL: Abdomen soft, non-tender, nondistended. MUSCULOSKELETAL: No cyanosis, or edema. No calf tenderness. A/P Problem List: (1) Atrial fibrillation ICD Code: I48.91 - Unspecified atrial fibrillation (2) Sepsis ICD Code: A41.9 - Sepsis, unspecified organism Status: Acute (3) Renal insufficiency ICD Code: N28.9 - Disorder of kidney and ureter, unspecified (4) Thrombocytopenia ICD Code: D69.6 - Thrombocytopenia, unspecified (5) Encephalopathy ICD Code: G93.40 - Encephalopathy, unspecified Status: Resolved (6) History of prosthetic aortic valve ICD Code: Z95.2 - Presence of prosthetic heart valve Assessment and Plan 66-year-old male with medical history significant for hypertension, coronary artery disease, COPD recent ICH left temporal, aortic stenosis status post aortic valve replacement, and A. fib. Initially presented to the hospital for altered mental status. Front have severe urosepsis. Strep bacteremia: Source likely given negative FRANKLIN - Patient was presented complaining of back pain, MRI of the spine was done to rule out any infection - Currently on vancomycin, anticipate 2 weeks on IV antibiotics - Blood cultures 02/11 are negative 4 days Encephalopathy - History of intracerebral hemorrhage 01/29-02/09. - Oriented only to person, per this is his baseline - Seroquel 50 mg twice a day ANNIA: Resolved Urinary retention - Has indwelling Robert at baseline - Continue Robert Hyponatremia: Resolved - As an outpatient is on 3 g salt tablets TID - the above are currently on hold A-Fib - Anti-correlation is currently on hold secondary to recent ICH - Currently rate controlled - Cardiology following, FRANKLIN 02/14 with no evidence of prosthetic valve endocarditis, normal functioning aortic valve prosthesis Hypertension - Is on lisinopril at home, because of intermittent hypotension during admission this has been held Thrombocytopenia: Chronic. No active bleeding. DVT prophylaxis: Bilateral SCDs Discharge Planning d/c pending ID clearance and recommendations. Problem Qualifiers (1) Sepsis: Qualified Codes: A41.9 - Sepsis, unspecified organism Jessica Adams MD Feb 16, 2017 08:07
[2017-02-16] MEDS: QUEtiapine FUMARATE 25 MG TAB PO SCH ×2 (08:12→19:56)
[2017-02-16] MEDS: PRAVASTATIN SOD 40 MG TAB PO SCH (08:12)
[2017-02-16] MEDS: LISINOPRIL 10 MG TAB PO SCH (08:12)
[2017-02-16] MEDS: FAMOTIDINE 20 MG TAB PO SCH ×2 (08:12→19:56)
[2017-02-16 09:43] LABS: AUTOMATED NEUTROPHIL # 3.6 TH/MM3 (1.8-7.7); BASOPHIL % 0.8 % (0.0-2.0); EOSINOPHIL # 0.2 TH/MM3 (0-0.4); EOSINOPHIL % 3.3 % (0.0-4.0); HEMATOCRIT 31.7 % (39.0-51.0); HEMO FLAGS DIFF FINAL; LYMPH % 23.8 % (9.0-44.0); LYMPHOCYTE # 1.3 TH/MM3 (1.0-4.8); MEAN CELL VOLUME 93.2 FL (80.0-100.0); MEAN CORPUSCULAR HEMOGLOBIN 31.4 PG (27.0-34.0); MEAN CORPUSCULAR HGB CONC 33.7 % (32.0-36.0); MONO % 5.7 % (0.0-8.0); NEUT % 66.4 % (16.0-70.0); PLATELET COUNT 138 TH/MM3 (150-450); RED CELL DISTRIBUTION WIDTH 14.2 % (11.6-17.2); WHITE BLOOD COUNT 5.4 TH/MM3 (4.0-11.0)
[2017-02-16 09:48] LABS: BICARBONATE 23.3 MEQ/L (21.0-32.0); POTASSIUM 3.8 MEQ/L (3.5-5.1)
[2017-02-16] MEDS ORDERED: PILL SPLITTER OTHER PRN (15:00)
[2017-02-16] MEDS: TAMSULOSIN HCL 0.4 MG CAP PO SCH (19:56)
[2017-02-17] VITALS (7 sets, daily range): BP systolic 113–136; BP diastolic 56–71; PULSE 54–69; RESP 16–20; TEMP 97.2–98.3; O2SAT 97–100
--- NOTE | 2017-02-17 07:17 | HHI.PR ---
Subjective Remarks Patient seen and examined this morning. Vitals are stable and the patient is afebrile. Says hes cold. Denies CP or SOB. Objective Vital Signs Date Time Temp Pulse Resp B/P (MAP) Pulse Ox O2 Delivery O2 Flow Rate FiO2 02/17/17 04:00 Room Air 02/17/17 04:00 98.2 63 19 123/71 (88) 100 02/17/17 00:00 Room Air 02/17/17 00:00 98.3 68 20 136/62 (86) 98 02/16/17 20:00 Room Air 02/16/17 20:00 98.1 66 18 149/66 (93) 99 02/16/17 20:00 64 02/16/17 16:07 97.0 59 19 155/69 (97) 99 02/16/17 12:27 Room Air 02/16/17 12:04 97.4 68 19 145/77 (99) 98 02/16/17 08:04 97.4 58 18 121/63 (82) 95 02/16/17 07:50 63 I/O 02/16/17 02/16/17 02/16/17 02/17/17 02/17/17 02/17/17 07:00 15:00 23:00 07:00 15:00 23:00 Intake Total 730 ml 240 ml Balance 730 ml 240 ml Intake Oral 480 ml 240 ml IV Total 250 ml # Voids 2 3 # Bowel Movements 0 1 Result Diagram: 02/16/17 0827 02/16/17 0827 Imaging Last Impressions Thoracic Spine MRI 02/15/17 0000 Signed Impressions: Service Date/Time: Wednesday, February 15, 2017 18:12 - CONCLUSION: Normal examination. Ousmane Valdovinos MD Cervical Spine MRI 02/15/17 0000 Signed Impressions: Service Date/Time: Wednesday, February 15, 2017 18:12 - CONCLUSION: 1. Chronic change throughout the cervical spine as described above. 2. Increased signal within the C5-C6 disc. This could represent fluid. The endplates appear preserved and normal. This finding is nonspecific. With the endplates being smooth, well defined, and intact, discitis is thought not likely. However, this should be correlated with the patient's clinical history and follow up if necessary. Ousmane Valdovinos MD Chest X-Ray 02/10/171948 Signed Impressions: Service Date/Time: Friday, February 10, 2017 19:56 - CONCLUSION: No acute disease. Jaylan Velazquez MD Objective Remarks GENERAL: thin appearing, elderly man nad SKIN: Warm and dry. HEAD: Normocephalic. EYES: No scleral icterus. No injection or drainage. NECK: Supple, trachea midline. No JVD or lymphadenopathy. CARDIOVASCULAR: CARMENZA heard over aortic and pulmonic area, rhythm appears regular RESPIRATORY: Breath sounds equal bilaterally. No accessory muscle use. GASTROINTESTINAL: Abdomen soft, non-tender, nondistended. MUSCULOSKELETAL: No cyanosis, or edema. No calf tenderness. A/P Problem List: (1) Atrial fibrillation ICD Code: I48.91 - Unspecified atrial fibrillation (2) Sepsis ICD Code: A41.9 - Sepsis, unspecified organism Status: Acute (3) Renal insufficiency ICD Code: N28.9 - Disorder of kidney and ureter, unspecified (4) Thrombocytopenia ICD Code: D69.6 - Thrombocytopenia, unspecified (5) Encephalopathy ICD Code: G93.40 - Encephalopathy, unspecified Status: Resolved (6) History of prosthetic aortic valve ICD Code: Z95.2 - Presence of prosthetic heart valve Assessment and Plan 66-year-old male with medical history significant for hypertension, coronary artery disease, COPD recent ICH left temporal, aortic stenosis status post aortic valve replacement, and A. fib. Initially presented to the hospital for altered mental status. Front have severe urosepsis. Strep bacteremia: Source likely given negative FRANKLIN - Patient was presented complaining of back pain, MRI of the spine was done to rule out any infection - Currently on vancomycin, anticipate 2 weeks on IV antibiotics - Blood cultures 02/11 are negative 5 days Encephalopathy - History of intracerebral hemorrhage 01/29-02/09. - Oriented only to person, per this is his baseline - Seroquel 50 mg twice a day ANNIA: Resolved Urinary retention - Has indwelling Robert at baseline - Continue Robert Hyponatremia: Resolved - As an outpatient is on 3 g salt tablets TID - the above are currently on hold A-Fib - Anti-correlation is currently on hold secondary to recent ICH - Currently rate controlled - Cardiology following, FRANKLIN 02/14 with no evidence of prosthetic valve endocarditis, normal functioning aortic valve prosthesis Hypertension - Is on lisinopril at home, because of intermittent hypotension during admission this has been held Thrombocytopenia: Chronic. No active bleeding. DVT prophylaxis: Bilateral SCDs Discharge Planning d/c pending ID clearance and recommendations. Problem Qualifiers (1) Sepsis: Qualified Codes: A41.9 - Sepsis, unspecified organism Jessica Adams MD Feb 17, 2017 07:17
[2017-02-17] MEDS: LISINOPRIL 10 MG TAB PO SCH (10:16)
[2017-02-17] MEDS: FAMOTIDINE 20 MG TAB PO SCH ×2 (10:16→20:16)
[2017-02-17] MEDS: PRAVASTATIN SOD 40 MG TAB PO SCH (10:16)
[2017-02-17] MEDS: SODIUM CHLORIDE 0.9% FLUSH 10 ML FLUSH IV FLUSH SCH ×2 (10:17→20:16)
[2017-02-17] MEDS: QUEtiapine FUMARATE 25 MG TAB PO SCH ×2 (10:17→20:16)
[2017-02-17 12:25] LABS: AUTOMATED NEUTROPHIL # 4.3 TH/MM3 (1.8-7.7); BASOPHIL # 0.1 TH/MM3 (0-0.2); BASOPHIL % 1.2 % (0.0-2.0); EOSINOPHIL # 0.1 TH/MM3 (0-0.4); EOSINOPHIL % 1.4 % (0.0-4.0); HEMATOCRIT 32.4 % (39.0-51.0); HEMO FLAGS DIFF FINAL; LYMPH % 15.5 % (9.0-44.0); LYMPHOCYTE # 0.9 TH/MM3 (1.0-4.8); MEAN CELL VOLUME 91.4 FL (80.0-100.0); MEAN CORPUSCULAR HEMOGLOBIN 30.3 PG (27.0-34.0); MEAN CORPUSCULAR HGB CONC 33.1 % (32.0-36.0); MONO % 4.8 % (0.0-8.0); NEUT % 77.1 % (16.0-70.0); PLATELET COUNT 172 TH/MM3 (150-450); RED BLOOD COUNT 3.55 MIL/MM3 (4.50-5.90); RED CELL DISTRIBUTION WIDTH 14.4 % (11.6-17.2); WHITE BLOOD COUNT 5.6 TH/MM3 (4.0-11.0)
[2017-02-17 12:57] LABS: BICARBONATE 28.8 MEQ/L (21.0-32.0); POTASSIUM 3.8 MEQ/L (3.5-5.1)
[2017-02-17] MEDS: VANCOMYCIN 1,000 MG/NS 250 ML IV SCH ×4 (15:13→23:30)
[2017-02-17] MEDS: TAMSULOSIN HCL 0.4 MG CAP PO SCH (20:16)
[2017-02-18] VITALS: BP 116/65; PULSE 68; RESP 18; TEMP 97.7; O2SAT 95
[2017-02-18 04:00] VITALS: BP 106/64; PULSE 67; RESP 18; TEMP 97.5; O2SAT 96
[2017-02-18 08:00] VITALS: BP 125/73; PULSE 72; PULSE 73; RESP 20; TEMP 97.3; O2SAT 94
[2017-02-18] MEDS: PRAVASTATIN SOD 40 MG TAB PO SCH (09:56)
[2017-02-18] MEDS: LISINOPRIL 10 MG TAB PO SCH (09:56)
[2017-02-18] MEDS: QUEtiapine FUMARATE 25 MG TAB PO SCH ×2 (09:56→20:59)
[2017-02-18] MEDS: SODIUM CHLORIDE 0.9% FLUSH 10 ML FLUSH IV FLUSH SCH ×2 (09:57→20:59)
[2017-02-18] MEDS: FAMOTIDINE 20 MG TAB PO SCH ×2 (09:57→20:58)
[2017-02-18 12:00] VITALS: BP 114/68; PULSE 78; RESP 20; TEMP 97.6; O2SAT 98
--- NOTE | 2017-02-18 12:01 | HHI.IDPN ---
Subjective Subjective Remarks FRANKLIN negative for vegetation - dw Quadratt afebrile co neck pain repeat BC negative MRI result was noted and dw radiologist Antibiotics vancomycin Allergies: Coded Allergies: No Known Allergies (Unverified , 02/10/17) Objective . Vital Signs Date Time Temp Pulse Resp B/P (MAP) Pulse Ox O2 Delivery O2 Flow Rate FiO2 02/18/17 08:00 97.3 73 20 125/73 (90) 94 02/18/17 04:00 Room Air 02/18/17 04:00 97.5 67 18 106/64 (78) 96 02/18/17 00:00 97.7 68 18 116/65 (82) 95 02/18/17 00:00 Room Air 02/17/17 20:00 Room Air 02/17/17 20:00 66 02/17/17 20:00 98.3 69 16 117/70 (86) 97 02/17/17 16:00 97.5 65 16 113/56 (75) 98 02/17/17 12:00 97.2 59 16 116/58 (77) 98 . Laboratory Tests Test 02/17/17 12:05 White Blood Count 5.6 TH/MM3 Red Blood Count 3.55 MIL/MM3 Hemoglobin 10.7 GM/DL Hematocrit 32.4 % Mean Corpuscular Volume 91.4 FL Mean Corpuscular Hemoglobin 30.3 PG Mean Corpuscular Hemoglobin Concent 33.1 % Red Cell Distribution Width 14.4 % Platelet Count 172 TH/MM3 Mean Platelet Volume 7.3 FL Neutrophils (%) (Auto) 77.1 % Lymphocytes (%) (Auto) 15.5 % Monocytes (%) (Auto) 4.8 % Eosinophils (%) (Auto) 1.4 % Basophils (%) (Auto) 1.2 % Neutrophils # (Auto) 4.3 TH/MM3 Lymphocytes # (Auto) 0.9 TH/MM3 Monocytes # (Auto) 0.3 TH/MM3 Eosinophils # (Auto) 0.1 TH/MM3 Basophils # (Auto) 0.1 TH/MM3 CBC Comment DIFF FINAL Differential Comment Laboratory Tests Test 02/17/17 12:05 Blood Urea Nitrogen 7 MG/DL Creatinine 0.67 MG/DL Random Glucose 88 MG/DL Calcium Level 8.7 MG/DL Sodium Level 142 MEQ/L Potassium Level 3.8 MEQ/L Chloride Level 104 MEQ/L Carbon Dioxide Level 28.8 MEQ/L Anion Gap 9 MEQ/L Estimat Glomerular Filtration Rate 119 ML/MIN Imaging v Last Impressions Thoracic Spine MRI 02/15/17 0000 Signed Impressions: Service Date/Time: Wednesday, February 15, 2017 18:12 - CONCLUSION: Normal examination. Ousmane Valdovinos MD Cervical Spine MRI 02/15/17 0000 Signed Impressions: Service Date/Time: Wednesday, February 15, 2017 18:12 - CONCLUSION: 1. Chronic change throughout the cervical spine as described above. 2. Increased signal within the C5-C6 disc. This could represent fluid. The endplates appear preserved and normal. This finding is nonspecific. With the endplates being smooth, well defined, and intact, discitis is thought not likely. However, this should be correlated with the patient's clinical history and follow up if necessary. Ousmane Valdovinos MD Chest X-Ray 02/10/17 194 Signed Impressions: Service Date/Time: Friday, February 10, 2017 19:56 - CONCLUSION: No acute disease. Jaylan Velazquez MD Physical Exam CONSTITUTIONAL/GENERAL: This is a thin ederly male patient, in no apparent distress. TUBES/LINES/DRAINS: SKIN: No jaundice, rashes, or lesions. No wounds seen anteriorly. Skin temperature appropriate. Not diaphoretic. No Janeway lesions or splinter hemorrhages NECK: decreased ROM 2/2 pain, no swelling or redness EYES: Pupils equal and round and reactive. No scleral icterus. No injection or drainage. ? 1-2 possible petechia on conjntivae Fundi not examined. CARDIOVASCULAR: Regular rate and rhythm + systolic murmur 3/6 with max on aortic sit, no gallops, or rubs. No JVD. Peripheral pulses symmetric. Medial sternotomy scar well healed wth palpable sternal herman RESPIRATORY/CHEST: Symmetric, unlabored respirations. Clear to auscultation. Breath sounds equal bilaterally. No wheezes, rales, or rhonchi. GASTROINTESTINAL: Abdomen soft, non-tender, nondistended. No hepato-splenomegaly , or palpable masses. No guarding. Bowel sounds present. GENITOURINARY: Without palpable bladder distension. NEUROLOGICAL: Awake and alert. Confused. follows commands PSYCHIATRIC: No obvious anxiety/depression. no apparent hallucinations or other psychotic thought process. Calm and pleasant Assessment & Plan Remarks Sepsis: feer 103, leukocytosis, 19K, bandemia: clinically resolved Strep bacteremia / source: endovascular vs ? C spine infex ncreased signal within the C5-C6 disc. This could represent fluid. Pt co neck pain, that was worse from his baseline Aortic valve prosthesis, no e/o PVE on FRANKLIN BAck pain - r/o spine infx in the settings of bactremia: T spine MRI neg UTI, growing coag neg staph and entorcoccus : S amp R cipro dc vancomycin start CFTX -WBC* scan: if neg for infx will give short course of abx (2 weeks), o/w expect long course (8 wks) richard RN [facility] radi[facility] Maryann Dominguez MD Feb 18, 2017 12:01
[2017-02-18] MEDS: AMOXICILLIN (TRIHYDRATE) 500 MG CAP PO SCH ×2 (14:18→17:46)
[2017-02-18] MEDS: cefTRIAXone INJ 2,000 MG in SODIUM CHLORIDE 0.9% INJ 100 ML IV SCH (14:19)
--- NOTE | 2017-02-18 14:42 | CF ---
cc: SL[facility] GRAH[facility] PROCEDURE PERFORMED Transesophageal echocardiogram. INDICATION Sepsis, history of aortic valve replacement, evaluation for endocarditis. PROCEDURE After the patient was sedated by Anesthesia, the transesophageal probe was placed without difficulty. Tomographic images were obtained. Left ventricular function was preserved. The left atrial appendage was visualized and there was no evidence of left atrial thrombus. The aortic valve prosthesis was well-visualized. There was no evidence of aortic stenosis. There was evidence of trace insufficiency. There was no evidence of aortic valve vegetation. The mitral valve was structurally normal. There was no evidence of mitral stenosis. There was no evidence of mild mitral regurgitation with multiple jets. There was no evidence of mitral stenosis. There was no evidence of mitral valve vegetation. There was evidence of mild tricuspid regurgitation. There was no evidence of tricuspid vegestation. There was no evidence of pulmonary valve stenosis or regurgitation. A bubble study was performed and there was no evidence of ensty-sl-qadf shunt. The descending aorta had mild plaque. DIAGNOSIS 1. No evidence of valvular vegetations. 2. Normal function of the aortic valve prosthesis. 3. Preserved left ventricular systolic function. 4. Mild mitral regurgitation. 5. Mild tricuspid regurgitation. 6. No evidence of patent foramen ovale. IMPRESSION No evidence of endocarditis. MD BRIELLE Elder/CRISTAL /4:23 PM /2:30 PM
--- NOTE | 2017-02-18 14:49 | PD.CARD.PN ---
Subjective Subjective Remarks No CP or SOB, feels better Objective Medications Current Medications Medications (Trade) Dose Ordered Sig/Maia Route Start Time Stop Time Status Last Admin (Duoneb Neb) 1 ampule Q2HR NEB PRN NEB 02/10/17 22:45 (NS Flush) 2 ml UNSCH PRN IV FLUSH 02/10/17 22:45 (NS Flush) 2 ml BID IV FLUSH 02/11/17 09:00 02/18/17 09:57 (Zofran Inj) 4 mg Q6H PRN IVP 02/10/17 22:45 (Tylenol) 650 mg Q6H PRN PO 02/10/17 22:45 (Morphine Inj) 2 mg Q3H PRN IV PUSH 02/10/17 22:45 (Roxicodone) 5 mg Q4H PRN PO 02/10/17 22:45 (Milk Of Magnesia Liq) 30 ml Q12H PRN PO 02/10/17 22:45 (Dulcolax Supp) 10 mg DAILY PRN RECTAL 02/10/17 22:45 (Pepcid) 10 mg BID PO 02/11/17 09:00 02/18/17 09:57 (Pravachol) 40 mg DAILY PO 02/11/17 09:00 02/18/17 09:56 (SEROquel) 50 mg BID PO 02/11/17 09:00 02/18/17 09:56 (Sodium Chloride) 3 gm TID PO 02/11/17 09:00 Future Hold 02/12/17 09:30 (Flomax) 0.4 mg HS PO 02/11/17 21:00 02/17/17 20:16 (Prinivil) 10 mg DAILY PO 02/14/17 09:00 02/18/17 09:56 (Pill Splitter) 1 ea UNSCH PRN OTHER 02/16/17 15:00 Ceftriaxone Sodium 2000 mg/ Sodium Chloride 100 ml @ 200 mls/hr Q24H IV 02/18/17 13:00 02/18/17 14:19 (Trimox) 500 mg TID PO 02/18/17 13:00 02/18/17 14:18 Vital Signs / I&O Vital Signs Date Time Temp Pulse Resp B/P (MAP) Pulse Ox O2 Delivery O2 Flow Rate FiO2 02/18/17 12:00 97.6 78 20 114/68 (83) 98 02/18/17 09:15 Room Air 02/18/17 08:00 97.3 73 20 125/73 (90) 94 02/18/17 04:00 Room Air 02/18/17 04:00 97.5 67 18 106/64 (78) 96 02/18/17 00:00 97.7 68 18 116/65 (82) 95 02/18/17 00:00 Room Air 02/17/17 20:00 Room Air 02/17/17 20:00 66 02/17/17 20:00 98.3 69 16 117/70 (86) 97 02/17/17 16:00 97.5 65 16 113/56 (75) 98 I/O 02/17/17 02/17/17 02/17/17 02/18/17 02/18/17 02/18/17 07:00 15:00 23:00 07:00 15:00 23:00 Intake Total 100 ml 640 ml 240 ml Balance 100 ml 640 ml 240 ml Intake Oral 100 ml 640 ml 240 ml # Voids 2 4 2 # Bowel Movements 1 0 Physical Exam GENERAL: In NAD. SKIN: Warm and dry. HEAD: Normocephalic. EYES: No scleral icterus. No injection or drainage. NECK: Supple, trachea midline. No JVD or lymphadenopathy. CARDIOVASCULAR: Regular rate and rhythm, 1/6 syst murmur, no gallops or rubs. RESPIRATORY: Breath sounds equal bilaterally. No accessory muscle use. GASTROINTESTINAL: Abdomen soft, non-tender, nondistended. MUSCULOSKELETAL: No cyanosis, or edema. Laboratory Date/Time Source Procedure Growth Status 02/11/17 15:36 Blood Peripheral Aerobic Blood Culture - Final NO GROWTH IN 5 DAYS Complete 02/11/17 15:36 Blood Peripheral Anaerobic Blood Culture - Final NO GROWTH IN 5 DAYS Complete 02/10/17 22:30 Nasal Aspirate Influenza Types A,B Antigen (CARRIE) - Final NEGATIVE FOR FLU A AND B ANTIGEN.... Complete 02/10/17 20:15 Urine Catheterized Urine Urine Culture - Final Staphylococcus Epidermidis Enterococcus Faecalis Complete Assessment and Plan Problem List: (1) Sepsis ICD Codes: A41.9 - Sepsis, unspecified organism Status: Acute (2) History of prosthetic aortic valve ICD Codes: Z95.2 - Presence of prosthetic heart valve (3) COPD (chronic obstructive pulmonary disease) ICD Codes: J44.9 - Chronic obstructive pulmonary disease, unspecified Assessment and Plan Remains stable from cardiac standpoint. FRANKLIN with no evidence of prosthetic valve endocarditis and normal function of aortic valve prosthesis. Continue current program with antibiotics as per ID. Increase activity. Problem Qualifiers (1) Sepsis: Qualified Codes: A41.9 - Sepsis, unspecified organism Samantha Robledo MD Feb 18, 2017 14:49
--- NOTE | 2017-02-18 15:31 | HHI.PR ---
Subjective Remarks Written by Jina Gonzalez, acting as scribe for Dr. Rodriguez on 02/18/17 at 15:12. Follow up on patient with encephalopathy, strept bacteremia. Patient seen and examined. Patient reports chronic back pain. Otherwise, patient has no complaints. Denies any fever or chills. Denies any chest pain or shortness of breath. Denies any N/V or abdominal pain. Objective Vitals Vital Signs Date Time Temp Pulse Resp B/P (MAP) Pulse Ox O2 Delivery O2 Flow Rate FiO2 02/18/17 12:00 97.6 78 20 114/68 (83) 98 02/18/17 09:15 Room Air 02/18/17 08:00 97.3 73 20 125/73 (90) 94 02/18/17 04:00 Room Air 02/18/17 04:00 97.5 67 18 106/64 (78) 96 02/18/17 00:00 97.7 68 18 116/65 (82) 95 02/18/17 00:00 Room Air 02/17/17 20:00 Room Air 02/17/17 20:00 66 02/17/17 20:00 98.3 69 16 117/70 (86) 97 02/17/17 16:00 97.5 65 16 113/56 (75) 98 I/O 02/17/17 02/17/17 02/17/17 02/18/17 02/18/17 02/18/17 07:00 15:00 23:00 07:00 15:00 23:00 Intake Total 100 ml 640 ml 240 ml 100 ml Balance 100 ml 640 ml 240 ml 100 ml Intake Oral 100 ml 640 ml 240 ml IV Total 100 ml # Voids 2 4 2 # Bowel Movements 1 0 Result Diagram: 02/17/17 1205 02/17/17 1205 Imaging Last Impressions Thoracic Spine MRI 02/15/17 0000 Signed Impressions: Service Date/Time: Wednesday, February 15, 2017 18:12 - CONCLUSION: Normal examination. Ousmane Valdovinos MD Cervical Spine MRI 02/15/17 0000 Signed Impressions: Service Date/Time: Wednesday, February 15, 2017 18:12 - CONCLUSION: 1. Chronic change throughout the cervical spine as described above. 2. Increased signal within the C5-C6 disc. This could represent fluid. The endplates appear preserved and normal. This finding is nonspecific. With the endplates being smooth, well defined, and intact, discitis is thought not likely. However, this should be correlated with the patient's clinical history and follow up if necessary. Ousmane Valdovinos MD Chest X-Ray 02/10/171948 Signed Impressions: Service Date/Time: Friday, February 10, 2017 19:56 - CONCLUSION: No acute disease. Jaylan Velazquez MD Objective Remarks GENERAL: This is a thin-appearing, well-developed patient, in no apparent distress. Awake and alert. Pleasantly confused. SKIN: Warm and dry. HEENT: Normocephalic. EOMI. Nose without bleeding. Airway patent. NECK: Trachea midline. Supple. CARDIOVASCULAR: Regular rate and rhythm. (+) murmur present. RESPIRATORY: Clear to auscultation. Breath sounds equal bilaterally. No wheezes , rales, or rhonchi. GASTROINTESTINAL: Abdomen soft, non-tender, nondistended. Bowel Sounds normoactive x4. GENITOURINARY: Bridges in place with pale yellow urine in bag. MUSCULOSKELETAL: Extremities without clubbing, cyanosis, or edema. NEUROLOGICAL: Awake and alert. Pleasantly confused. Oriented to person and place. Moves all extremities. Normal speech. Medications and IVs Current Medications Medications (Trade) Dose Ordered Sig/Maia Route Start Time Stop Time Status Last Admin (Duoneb Neb) 1 ampule Q2HR NEB PRN NEB 02/10/17 22:45 (NS Flush) 2 ml UNSCH PRN IV FLUSH 02/10/17 22:45 (NS Flush) 2 ml BID IV FLUSH 02/11/17 09:00 02/18/17 09:57 (Zofran Inj) 4 mg Q6H PRN IVP 02/10/17 22:45 (Tylenol) 650 mg Q6H PRN PO 02/10/17 22:45 (Morphine Inj) 2 mg Q3H PRN IV PUSH 02/10/17 22:45 (Roxicodone) 5 mg Q4H PRN PO 02/10/17 22:45 (Milk Of Magnesia Liq) 30 ml Q12H PRN PO 02/10/17 22:45 (Dulcolax Supp) 10 mg DAILY PRN RECTAL 02/10/17 22:45 (Pepcid) 10 mg BID PO 02/11/17 09:00 02/18/17 09:57 (Pravachol) 40 mg DAILY PO 02/11/17 09:00 02/18/17 09:56 (SEROquel) 50 mg BID PO 02/11/17 09:00 02/18/17 09:56 (Sodium Chloride) 3 gm TID PO 02/11/17 09:00 Future Hold 02/12/17 09:30 (Flomax) 0.4 mg HS PO 02/11/17 21:00 02/17/17 20:16 (Prinivil) 10 mg DAILY PO 02/14/17 09:00 02/18/17 09:56 (Pill Splitter) 1 ea UNSCH PRN OTHER 02/16/17 15:00 Ceftriaxone Sodium 2000 mg/ Sodium Chloride 100 ml @ 200 mls/hr Q24H IV 02/18/17 13:00 02/18/17 14:19 (Trimox) 500 mg TID PO 02/18/17 13:00 02/18/17 14:18 A/P Problem List: (1) Encephalopathy ICD Code: G93.40 - Encephalopathy, unspecified Status: Resolved (2) Sepsis ICD Code: A41.9 - Sepsis, unspecified organism Status: Acute (3) UTI (urinary tract infection) ICD Code: N39.0 - Urinary tract infection, site not specified Status: Acute (4) Renal insufficiency ICD Code: N28.9 - Disorder of kidney and ureter, unspecified (5) Thrombocytopenia ICD Code: D69.6 - Thrombocytopenia, unspecified (6) Bacteremia due to Gram-positive bacteria ICD Code: R78.81 - Bacteremia Assessment and Plan Patient is a 66-year-old male with primary medical history of HTN, CAD, COPD, recent ICH left temporal, aortic stenosis, s/p aortic valve replacement and A. fib off Coumadin who came into the hospital secondary to altered mental status. Found to have urosepsis. Strep bacteremia - UCX positive for staph epidermidis and enterococcus faecalis. BCX positive for Viridans streptococcus. - ID following - Patient was presented complaining of back pain, MRI of the spine was done to rule out any infection. Increased signal within C56, possibly representing fluid. WBC scan ordered by ID. If neg, will give short course of abx (2 weeks ) o/w 8 wks. MRI T spine negative. - Treated with vancomycin 02/11 to 02/17. 02/18 started on IV Ceftriaxone and Amoxicillin per ID. - Repeat blood cultures 02/11 are negative 5 days Encephalopathy - History of intracerebral hemorrhage 01/29-02/09. - Oriented only to person, per this is his baseline - Seroquel 50 mg twice a day ANNIA: Resolved Urinary retention - admitted with bridges cath - bridges discontinued. Patient voiding on his on. - Continue on Flomax Hyponatremia: Resolved - As an outpatient is on 3 g salt tablets TID - the above are currently on hold A-Fib Aortic valve prothesis - Anti-coagulation is currently on hold secondary to recent ICH - Currently rate controlled - Cardiology following, FRANKLIN 02/14 with no evidence of prosthetic valve endocarditis, normal functioning aortic valve prosthesis. Stable from cardiac standpoint. Hypertension - Continue on home dose of Lisinopril. - Monitor BP Thrombocytopenia: Chronic. No active bleeding. DVT prophylaxis: Bilateral SCDs This note was transcribed by jarred Gonzalez. I, Dr. Kevin Rodriguez personally performed the history, physical exam, and medical decision making; and confirmed the accuracy of the information in the transcribed note. Authenticated by Dr. Kevin Rodriguez on 02/18/17 at 15:36. Discharge Planning Awaiting WBC scan results/ID clearance. Plan for discharge back to [place] once cleared. Problem Qualifiers (1) Sepsis: Qualified Codes: A41.9 - Sepsis, unspecified organism (2) UTI (urinary tract infection): Qualified Codes: T83.511A - Infection and inflammatory reaction due to indwelling urethral catheter, initial encounter; N39.0 - Urinary tract infection , site not specified Jina Gonzalez Feb 18, 2017 15:31 Kevin Rodriguez MD Feb 18, 2017 15:37
[2017-02-18 16:00] VITALS: BP 146/71; PULSE 64; RESP 20; TEMP 98.3; O2SAT 97
[2017-02-18 20:00] VITALS: BP 136/71; PULSE 59; PULSE 62; RESP 16; TEMP 98; O2SAT 96
[2017-02-18] MEDS: TAMSULOSIN HCL 0.4 MG CAP PO SCH (20:59)
[2017-02-19] VITALS (9 sets, daily range): BP systolic 103–149; BP diastolic 56–81; PULSE 62–111; RESP 12–20; TEMP 97.1–98.3; O2SAT 92–100
[2017-02-19] MEDS: LISINOPRIL 10 MG TAB PO SCH (09:02)
[2017-02-19] MEDS: PRAVASTATIN SOD 40 MG TAB PO SCH (09:02)
[2017-02-19] MEDS: QUEtiapine FUMARATE 25 MG TAB PO SCH ×2 (09:02→21:44)
[2017-02-19] MEDS: AMOXICILLIN (TRIHYDRATE) 500 MG CAP PO SCH ×3 (09:02→17:33)
[2017-02-19] MEDS: FAMOTIDINE 20 MG TAB PO SCH ×2 (09:02→21:44)
[2017-02-19] MEDS: SODIUM CHLORIDE 0.9% FLUSH 10 ML FLUSH IV FLUSH SCH ×2 (09:03→21:44)
--- NOTE | 2017-02-19 10:12 | HHI.PR ---
Subjective Remarks Follow up bacteremia, encephalopathy. Patient has no specific complaints at this time. Denies pain currently. Objective Vitals Vital Signs Date Time Temp Pulse Resp B/P (MAP) Pulse Ox O2 Delivery O2 Flow Rate FiO2 02/19/17 08:20 Room Air 02/19/17 08:00 97.6 72 20 103/56 (72) 92 02/19/17 04:00 98.3 63 16 105/60 (75) 97 02/19/17 00:00 97.1 66 16 104/56 (72) 97 02/18/17 20:00 Room Air 02/18/17 20:00 98.0 62 16 136/71 (92) 96 02/18/17 20:00 59 02/18/17 16:00 98.3 64 20 146/71 (96) 97 02/18/17 16:00 Room Air 02/18/17 12:00 97.6 78 20 114/68 (83) 98 02/18/17 12:00 Room Air I/O 02/18/17 02/18/17 02/18/17 02/19/17 02/19/17 02/19/17 07:00 15:00 23:00 07:00 15:00 23:00 Intake Total 240 ml 100 ml 600 ml 240 ml Output Total 600 ml Balance 240 ml 100 ml 0 ml 240 ml Intake Oral 240 ml 600 ml 240 ml IV Total 100 ml Output Urine Total 600 ml # Voids 2 3 # Bowel Movements 0 0 0 Result Diagram: 02/17/17 1205 02/17/17 1205 Imaging Last Impressions Thoracic Spine MRI 02/15/17 0000 Signed Impressions: Service Date/Time: Wednesday, February 15, 2017 18:12 - CONCLUSION: Normal examination. Ousmane Valdovinos MD Cervical Spine MRI 02/15/17 0000 Signed Impressions: Service Date/Time: Wednesday, February 15, 2017 18:12 - CONCLUSION: 1. Chronic change throughout the cervical spine as described above. 2. Increased signal within the C5-C6 disc. This could represent fluid. The endplates appear preserved and normal. This finding is nonspecific. With the endplates being smooth, well defined, and intact, discitis is thought not likely. However, this should be correlated with the patient's clinical history and follow up if necessary. Ousmane Valdovinos MD Chest X-Ray 02/10/171948 Signed Impressions: Service Date/Time: Friday, February 10, 2017 19:56 - CONCLUSION: No acute disease. Jaylan Velazquez MD Objective Remarks General: Thin elderly male in no acute distress. Heart: Regular rate and rhythm. 2/6 systolic murmur. Lungs: Clear to auscultation bilaterally. No wheezes, rales, or rhonchi. Breathing is nonlabored. Abdomen: Soft, nontender, nondistended. Extremities: No lower extremity edema. Psych: Sleeping, but awakens easily and answers questions. Some confusion. Urinary Catheter: No Vascular Central Line Catheter: No A/P Problem List: (1) Encephalopathy ICD Code: G93.40 - Encephalopathy, unspecified Status: Resolved (2) Sepsis ICD Code: A41.9 - Sepsis, unspecified organism Status: Acute (3) UTI (urinary tract infection) ICD Code: N39.0 - Urinary tract infection, site not specified Status: Acute (4) Renal insufficiency ICD Code: N28.9 - Disorder of kidney and ureter, unspecified (5) Thrombocytopenia ICD Code: D69.6 - Thrombocytopenia, unspecified (6) Bacteremia due to Gram-positive bacteria ICD Code: R78.81 - Bacteremia Assessment and Plan 1. Strep bacteremia: Urine culture growing staph epidermidis and Enterococcus faecalis. Blood culture growing viridans streptococcus. Appreciate infectious disease recommendations. WBC scan pending. If negative, will give 2 weeks of IV antibiotics. If positive, will give 8 weeks IV antibiotics. MRI of the thoracic spine was negative. Patient received vancomycin from 02/11-02/17. Switched to IV ceftriaxone and oral amoxicillin on 02/18. Repeat blood cultures are negative. 2. Encephalopathy: History of intracerebral hemorrhage. Patient is oriented only to person at his baseline. Continue Seroquel. 3. Urinary retention: Robert catheter discontinued. Patient voiding. Continue Flomax. 4. Acute kidney injury: Resolved. 5. Hyponatremia: Resolved. 6. Atrial fibrillation, prosthetic aortic valve: Anticoagulation on hold secondary to recent intracranial hemorrhage. He is controlled. Appreciate cardiology recommendations. FRANKLIN showed no evidence of prosthetic valve endocarditis. 7. Hypertension: Continue lisinopril. 8. Thrombocytopenia: Chronic. No active bleeding. 9. DVT prophylaxis: SCDs. Discharge Planning Plan for discharge back to [place] once cleared by infectious disease. Awaiting results of WBC scan. Problem Qualifiers (1) Sepsis: Qualified Codes: A41.9 - Sepsis, unspecified organism (2) UTI (urinary tract infection): Qualified Codes: T83.511A - Infection and inflammatory reaction due to indwelling urethral catheter, initial encounter; N39.0 - Urinary tract infection , site not specified Kevin Rodriguez MD Feb 19, 2017 10:12
--- NOTE | 2017-02-19 10:13 | HHI.DCPOC ---
Discharge Care Plan Diagnosis: (1) Atrial fibrillation (2) Bacteremia due to Gram-positive bacteria (3) Encephalopathy (4) Thrombocytopenia (5) Renal insufficiency Goals to Promote Your Health * To prevent worsening of your condition and complications * To maintain your health at the optimal level Directions to Meet Your Goals Take your medications as prescribed Follow your dietary instruction Follow activity as directed Keep your appointments as scheduled Take your immunizations and boosters as scheduled If your symptoms worsen call your PCP, if no PCP go to Urgent Care Center or Emergency Room Smoking is Dangerous to Your Health. Avoid second hand smoke Call the 24-hour hour crisis hotline for domestic abuse at Kevin Rodriguez MD Feb 19, 2017 10:13
--- NOTE | 2017-02-19 13:22 | RADRPT ---
EXAM DATE/TIME: 02/19/2017 12:43 [facility] COMPARISON: MRI THORACIC SPINE W/O CONTRAST, February 15, 2017, 18:12. MRI CERVICAL SPINE W/O CONTRAST, February 032016, 18:12. INDICATIONS : Abscess of C-spine. Abnormal MRI. DOSE: 21.3 mCi Tc99m Ceretec labeled white blood cells IV PLANAR IMAGIN min, 3 hrs, 20 hrs MEDICAL HISTORY : Chronic obstructive pulmonary disease. A-fib. SURGICAL HISTORY : Back surgery and aortic valve replacement. ENCOUNTER: [facility] ACUITY: 1 week PAIN SCALE: 0/10 LOCATION: Back. TECHNIQUE: Following the in vitro labeling of autologous white cells and reinjection, whole body scan was perfor med at specified times. FINDINGS: There is no abnormal biodistribution of radiotracer. There is no evidence of any abnormal or increased accumulation of white cells in the region of the ce rvical spine. There is some focal uptake in the region of the left axilla which is most likely relate d to the injection site. Otherwise, the whole body scan is unremarkable. CONCLUSION: Unremarkable body white cell scan. Specifically, no abnormal uptake in the cervical spine. Emmett Suh MD on February 19, 2017 at 13:19 Board Certified Radiologist. This report was verified electronically.
[2017-02-19] MEDS ORDERED: AMOX500C PO (13:42)
--- NOTE | 2017-02-19 13:42 | HHI.FF ---
Infusion Therapy Location of Infusion Therapy: [facility] Infusion Therapy Order Patient Information Patient Weight 42.3 kg Diagnosis: Diagnosis Vir strep bacteremia Coded Allergies: No Known Allergies (Unverified , 02/10/17) Administer Medication Ceftriaxone 2 grams IV q 24 hours Start Treatment: Feb 19, 2017 Stop Treatment: Feb 24, 2017 Additional Information Venous access: PICC Line Additional Instructions [x] Peripheral flush and dressing changes per protocol [x] Implanted port and central wireline supervisor: * Implanted port: 10 ml Normal Saline followed by 5 ml Heparin 100 units/ml Heparin flush after each use and monthly to maintain. [] May leave port accessed during therapy. [] May leave peripheral site accessed for duration of therapy. [x] If patient has SOB or respiratory distress, check oxygen saturation. If less than 90% or clinical signs of respiratory distress, administer oxygen at 2 L/min. via nasal cannula and notify physician. [x] Anaphylaxis/Reaction orders: * Stop infusion. * Keep IV line open with saline flush. * Notify physician. * Monitor vital signs every 15 minutes until symptoms resolve. * Check Oxygen saturation; Oxygen at 2 L/min. via nasal cannula if less than 90% or clinical signs of respiratory distress. * Administer diphenhydramine (Benadryl) 25 mg IV STAT, (unless patient has received as pre-med). May repeat once, if necessary. * Solu-Cortef 250 mg IVP over 30-60 seconds, use 100 mg vials for each dissolution. * Epinephrine (1mg/1 ml) 0.3 mg subcutaneously or IVP now with any signs of respiratory distress. * Check with physician for new additional pre-med orders if patient is re- challenged or re-treated. [x] May remove PICC line when treatment complete, after confirming with Physician. [x] If the patient is admitted to the hospital, the ED, or transferred via [facility] , complete transfer form including medication reconciliation order sheet. Laboratory Tests Weekly Labs: CBC w/diff, Creatinine, LFT's (Hepatic function test) Maryann Dominguez MD Feb 19, 2017 13:42
[2017-02-19] MEDS: cefTRIAXone INJ 2,000 MG in SODIUM CHLORIDE 0.9% INJ 100 ML IV SCH (14:33)
--- NOTE | 2017-02-19 14:53 | HHI.IDPN ---
Subjective Subjective Remarks FRANKLIN negative for vegetation - dw Dr Jim afebrile no new co Antibiotics CFTX amoxicilln Allergies: Coded Allergies: No Known Allergies (Unverified , 02/10/17) Objective . Vital Signs Date Time Temp Pulse Resp B/P (MAP) Pulse Ox O2 Delivery O2 Flow Rate FiO2 02/19/17 12:00 97.2 63 20 109/62 (78) 98 02/19/17 08:20 Room Air 02/19/17 08:10 72 02/19/17 08:00 97.6 72 20 103/56 (72) 92 02/19/17 04:00 98.3 63 16 105/60 (75) 97 02/19/17 00:00 97.1 66 16 104/56 (72) 97 02/18/17 20:00 Room Air 02/18/17 20:00 98.0 62 16 136/71 (92) 96 02/18/17 20:00 59 02/18/17 16:00 98.3 64 20 146/71 (96) 97 02/18/17 16:00 Room Air Imaging v Last Impressions Tumor Localization 02/19/17 1243 Signed Impressions: Service Date/Time: Sunday, February 19, 2017 12:43 - CONCLUSION: Unremarkable body white cell scan. Specifically, no abnormal uptake in the cervical spine. Emmett Suh MD Thoracic Spine MRI 02/15/17 0000 Signed Impressions: Service Date/Time: Wednesday, February 15, 2017 18:12 - CONCLUSION: Normal examination. Ousmane Valdovinos MD Cervical Spine MRI 02/15/17 0000 Signed Impressions: Service Date/Time: Wednesday, February 15, 2017 18:12 - CONCLUSION: 1. Chronic change throughout the cervical spine as described above. 2. Increased signal within the C5-C6 disc. This could represent fluid. The endplates appear preserved and normal. This finding is nonspecific. With the endplates being smooth, well defined, and intact, discitis is thought not likely. However, this should be correlated with the patient's clinical history and follow up if necessary. Ousmane Valdovinos MD Chest X-Ray 02/10/17 194 Signed Impressions: Service Date/Time: Friday, February 10, 2017 19:56 - CONCLUSION: No acute disease. Jaylan Velazquze MD Physical Exam CONSTITUTIONAL/GENERAL: This is a thin ederly male patient, in no apparent distress. TUBES/LINES/DRAINS: SKIN: No jaundice, rashes, or lesions. CARDIOVASCULAR: Regular rate and rhythm + systolic murmur 3/6 with max on aortic sit, no gallops, or rubs. No JVD. Peripheral pulses symmetric. Medial sternotomy scar well healed wth palpable sternal herman RESPIRATORY/CHEST: Symmetric, unlabored respirations. Clear to auscultation. Breath sounds equal bilaterally. No wheezes, rales, or rhonchi. GASTROINTESTINAL: Abdomen soft, non-tender, nondistended. No hepato-splenomegaly , or palpable masses. No guarding. Bowel sounds present. NEUROLOGICAL: Awake and alert. follows commands PSYCHIATRIC: No obvious anxiety/depression. no apparent hallucinations or other psychotic thought process. Calm and pleasant Assessment & Plan Remarks Sepsis, clinically resolved Strep bacteremia / source: endovascular vs ? C spine infex ncreased signal within the C5-C6 disc. This could represent fluid. Pt co neck pain, that was worse from his baseline Aortic valve prosthesis, no e/o PVE on FRANKLIN BAck, neck pain - MRI with ? increased signal in C5-6 disk, no infx confirmed on WBC* scan UTI, and entorcoccus : S amp R ciprogrowing coag neg staph cont 1 more week of CFTX cont 1 more week of amoxicillin OK to dc once OPAT arranged OPAT forms filled out PICC dw Dr Josie ramos case mngr Maryann Dominguez MD Feb 19, 2017 14:53
--- NOTE | 2017-02-19 14:56 | PD.CARD.PN ---
Subjective Subjective Remarks No CP, mild SOB, no other c/o Objective Medications Current Medications Medications (Trade) Dose Ordered Sig/Maia Route Start Time Stop Time Status Last Admin (Duoneb Neb) 1 ampule Q2HR NEB PRN NEB 02/10/17 22:45 (NS Flush) 2 ml UNSCH PRN IV FLUSH 02/10/17 22:45 (NS Flush) 2 ml BID IV FLUSH 02/11/17 09:00 02/19/17 09:03 (Zofran Inj) 4 mg Q6H PRN IVP 02/10/17 22:45 (Tylenol) 650 mg Q6H PRN PO 02/10/17 22:45 (Morphine Inj) 2 mg Q3H PRN IV PUSH 02/10/17 22:45 (Roxicodone) 5 mg Q4H PRN PO 02/10/17 22:45 (Milk Of Magnesia Liq) 30 ml Q12H PRN PO 02/10/17 22:45 (Dulcolax Supp) 10 mg DAILY PRN RECTAL 02/10/17 22:45 (Pepcid) 10 mg BID PO 02/11/17 09:00 02/19/17 09:02 (Pravachol) 40 mg DAILY PO 02/11/17 09:00 02/19/17 09:02 (SEROquel) 50 mg BID PO 02/11/17 09:00 02/19/17 09:02 (Sodium Chloride) 3 gm TID PO 02/11/17 09:00 Future Hold 02/12/17 09:30 (Flomax) 0.4 mg HS PO 02/11/17 21:00 02/18/17 20:59 (Prinivil) 10 mg DAILY PO 02/14/17 09:00 02/19/17 09:02 (Pill Splitter) 1 ea UNSCH PRN OTHER 02/16/17 15:00 Ceftriaxone Sodium 2000 mg/ Sodium Chloride 100 ml @ 200 mls/hr Q24H IV 02/18/17 13:00 02/19/17 14:33 (Trimox) 500 mg TID PO 02/18/17 13:00 02/19/17 14:33 Vital Signs / I&O Vital Signs Date Time Temp Pulse Resp B/P (MAP) Pulse Ox O2 Delivery O2 Flow Rate FiO2 02/19/17 12:00 97.2 63 20 109/62 (78) 98 02/19/17 08:20 Room Air 02/19/17 08:10 72 02/19/17 08:00 97.6 72 20 103/56 (72) 92 02/19/17 04:00 98.3 63 16 105/60 (75) 97 02/19/17 00:00 97.1 66 16 104/56 (72) 97 02/18/17 20:00 Room Air 02/18/17 20:00 98.0 62 16 136/71 (92) 96 02/18/17 20:00 59 02/18/17 16:00 98.3 64 20 146/71 (96) 97 02/18/17 16:00 Room Air I/O 02/18/17 02/18/17 02/18/17 02/19/17 02/19/17 02/19/17 07:00 15:00 23:00 07:00 15:00 23:00 Intake Total 240 ml 100 ml 600 ml 240 ml Output Total 600 ml Balance 240 ml 100 ml 0 ml 240 ml Intake Oral 240 ml 600 ml 240 ml IV Total 100 ml Output Urine Total 600 ml # Voids 2 3 # Bowel Movements 0 0 0 Physical Exam GENERAL: In NAD. SKIN: Warm and dry. HEAD: Normocephalic. EYES: No scleral icterus. No injection or drainage. NECK: Supple, trachea midline. No JVD or lymphadenopathy. CARDIOVASCULAR: Regular rate and rhythm, 1/6 syst murmur, no gallops or rubs. RESPIRATORY: Breath sounds equal bilaterally. No accessory muscle use. GASTROINTESTINAL: Abdomen soft, non-tender, nondistended. MUSCULOSKELETAL: No cyanosis, or edema. Laboratory Date/Time Source Procedure Growth Status 02/11/17 15:36 Blood Peripheral Aerobic Blood Culture - Final NO GROWTH IN 5 DAYS Complete 02/11/17 15:36 Blood Peripheral Anaerobic Blood Culture - Final NO GROWTH IN 5 DAYS Complete 02/10/17 22:30 Nasal Aspirate Influenza Types A,B Antigen (CARRIE) - Final NEGATIVE FOR FLU A AND B ANTIGEN.... Complete 02/10/17 20:15 Urine Catheterized Urine Urine Culture - Final Staphylococcus Epidermidis Enterococcus Faecalis Complete Imaging Last 24 hours Impressions Tumor Localization 02/19/17 8673 Signed Impressions: Service Date/Time: Sunday, February 19, 2017 12:43 - CONCLUSION: Unremarkable body white cell scan. Specifically, no abnormal uptake in the cervical spine. Emmett Suh MD Assessment and Plan Problem List: (1) Sepsis ICD Codes: A41.9 - Sepsis, unspecified organism Status: Acute (2) History of prosthetic aortic valve ICD Codes: Z95.2 - Presence of prosthetic heart valve (3) COPD (chronic obstructive pulmonary disease) ICD Codes: J44.9 - Chronic obstructive pulmonary disease, unspecified Assessment and Plan No new cardiac issues. FRANKLIN with no evidence of prosthetic valve endocarditis and normal function of aortic valve prosthesis. Continue current program with abxs as per ID. Increase activity. DC home as planned. Problem Qualifiers (1) Sepsis: Qualified Codes: A41.9 - Sepsis, unspecified organism Samantha Robledo MD Feb 19, 2017 14:56
[2017-02-19] MEDS: TAMSULOSIN HCL 0.4 MG CAP PO SCH (21:44)
[2017-02-20] VITALS: BP 114/65; PULSE 63; RESP 16; TEMP 97.9; O2SAT 97
[2017-02-20 04:00] VITALS: BP 111/68; PULSE 64; RESP 16; TEMP 97.6; O2SAT 97
[2017-02-20 08:00] VITALS: BP 103/56; PULSE 62; PULSE 76; RESP 18; TEMP 97.9; O2SAT 96
[2017-02-20] MEDS: LISINOPRIL 10 MG TAB PO SCH (10:34)
[2017-02-20] MEDS: FAMOTIDINE 20 MG TAB PO SCH (10:34)
[2017-02-20] MEDS: AMOXICILLIN (TRIHYDRATE) 500 MG CAP PO SCH ×2 (10:34→13:00)
[2017-02-20] MEDS: QUEtiapine FUMARATE 25 MG TAB PO SCH (10:34)
[2017-02-20] MEDS: PRAVASTATIN SOD 40 MG TAB PO SCH (10:34)
[2017-02-20] MEDS: SODIUM CHLORIDE 0.9% FLUSH 10 ML FLUSH IV FLUSH SCH (10:36)
[2017-02-20 12:00] VITALS: BP 121/71; PULSE 61; RESP 18; TEMP 97.8; O2SAT 99
[2017-02-20] MEDS: cefTRIAXone INJ 2,000 MG in SODIUM CHLORIDE 0.9% INJ 100 ML IV SCH (13:00)
--- NOTE | 2017-02-20 14:50 | HHI.PR ---
Subjective Remarks resting in bed comfortably, plan for discharge to rehabilitation today Objective Vitals Vital Signs Date Time Temp Pulse Resp B/P (MAP) Pulse Ox O2 Delivery O2 Flow Rate FiO2 02/20/17 12:00 97.8 61 18 121/71 (88) 99 02/20/17 08:00 97.9 62 18 103/56 (72) 96 02/20/17 04:00 97.6 64 16 111/68 (82) 97 02/20/17 00:00 97.9 63 16 114/65 (81) 97 02/19/17 20:25 62 02/19/17 20:00 Room Air 02/19/17 19:15 97.2 67 14 149/70 (96) 100 02/19/17 16:20 97.6 67 16 142/70 (94) 99 02/19/17 16:00 Room Air I/O 02/19/17 02/19/17 02/19/17 02/20/17 02/20/17 02/20/17 07:00 15:00 23:00 07:00 15:00 23:00 Intake Total 240 ml 720 ml 340 ml Output Total 600 ml Balance 240 ml 120 ml 340 ml Intake Oral 240 ml 720 ml 240 ml IV Total 100 ml Output Urine Total 600 ml # Voids 3 3 # Bowel Movements 0 1 0 Result Diagram: 02/17/17 1205 02/17/17 1205 Objective Remarks GENERAL: This is a frail elderly 66 years old male, in no apparent distress. SKIN: No rashes, warm and dry HEAD: Atraumatic. Normocephalic. EYES: Pupils equal round and reactive. Extraocular motions intact. No scleral icterus. ENT: Nose without bleeding, or drainage, Airway patent. NECK: Trachea midline. Supple CARDIOVASCULAR: Regular rate and rhythm without murmurs, gallops, or rubs. RESPIRATORY: Fair air entry bilaterally. No wheezes, rales, or rhonchi. GASTROINTESTINAL: Abdomen soft, non-tender, nondistended. Positive bowel sounds MUSCULOSKELETAL: Extremities without clubbing, cyanosis, or edema. Pedal pulses appreciated NEUROLOGICAL: Somnolent, Moves all extremity. A/P Problem List: (1) Encephalopathy ICD Code: G93.40 - Encephalopathy, unspecified Status: Resolved (2) Sepsis ICD Code: A41.9 - Sepsis, unspecified organism Status: Acute (3) UTI (urinary tract infection) ICD Code: N39.0 - Urinary tract infection, site not specified Status: Acute (4) Renal insufficiency ICD Code: N28.9 - Disorder of kidney and ureter, unspecified (5) Thrombocytopenia ICD Code: D69.6 - Thrombocytopenia, unspecified (6) Bacteremia due to Gram-positive bacteria ICD Code: R78.81 - Bacteremia Assessment and Plan 1. Strep bacteremia: Urine culture growing staph epidermidis and Enterococcus faecalis. Blood culture growing viridans streptococcus. Appreciate infectious disease recommendations. WBC scan pending. If negative, will give 2 weeks of IV antibiotics. If positive, will give 8 weeks IV antibiotics. MRI of the thoracic spine was negative. Patient received vancomycin from 02/11-02/17. Switched to IV ceftriaxone and oral amoxicillin on 02/18. Repeat blood cultures are negative. 2. Encephalopathy: History of intracerebral hemorrhage. Patient is oriented only to person at his baseline. Continue Seroquel. 3. Urinary retention: Robert catheter discontinued. Patient voiding. Continue Flomax. 4. Acute kidney injury: Resolved. 5. Hyponatremia: Resolved. 6. Atrial fibrillation, prosthetic aortic valve: Anticoagulation on hold secondary to recent intracranial hemorrhage. He is controlled. Appreciate cardiology recommendations. FRANKLIN showed no evidence of prosthetic valve endocarditis. 7. Hypertension: Continue lisinopril. 8. Thrombocytopenia: Chronic. No active bleeding. 9. DVT prophylaxis: SCDs. Discharge Planning Waiting transfer to rehabilitation today Problem Qualifiers (1) Sepsis: Qualified Codes: A41.9 - Sepsis, unspecified organism (2) UTI (urinary tract infection): Qualified Codes: T83.511A - Infection and inflammatory reaction due to indwelling urethral catheter, initial encounter; N39.0 - Urinary tract infection , site not specified Jorge Pedersen MD Feb 20, 2017 14:50
--- NOTE | 2017-02-20 16:49 | PD.CARD.PN ---
Subjective Subjective Remarks Mild atypical CP, mild SOB Objective Medications Current Medications Medications (Trade) Dose Ordered Sig/Maia Route Start Time Stop Time Status Last Admin (Duoneb Neb) 1 ampule Q2HR NEB PRN NEB 02/10/17 22:45 (NS Flush) 2 ml UNSCH PRN IV FLUSH 02/10/17 22:45 (NS Flush) 2 ml BID IV FLUSH 02/11/17 09:00 02/20/17 10:36 (Zofran Inj) 4 mg Q6H PRN IVP 02/10/17 22:45 (Tylenol) 650 mg Q6H PRN PO 02/10/17 22:45 (Morphine Inj) 2 mg Q3H PRN IV PUSH 02/10/17 22:45 (Roxicodone) 5 mg Q4H PRN PO 02/10/17 22:45 (Milk Of Magnesia Liq) 30 ml Q12H PRN PO 02/10/17 22:45 (Dulcolax Supp) 10 mg DAILY PRN RECTAL 02/10/17 22:45 (Pepcid) 10 mg BID PO 02/11/17 09:00 02/20/17 10:34 (Pravachol) 40 mg DAILY PO 02/11/17 09:00 02/20/17 10:34 (SEROquel) 50 mg BID PO 02/11/17 09:00 02/20/17 10:34 (Sodium Chloride) 3 gm TID PO 02/11/17 09:00 Future Hold 02/12/17 09:30 (Flomax) 0.4 mg HS PO 02/11/17 21:00 02/19/17 21:44 (Prinivil) 10 mg DAILY PO 02/14/17 09:00 02/20/17 10:34 (Pill Splitter) 1 ea UNSCH PRN OTHER 02/16/17 15:00 Ceftriaxone Sodium 2000 mg/ Sodium Chloride 100 ml @ 200 mls/hr Q24H IV 02/18/17 13:00 02/20/17 13:00 (Trimox) 500 mg TID PO 02/18/17 13:00 02/20/17 13:00 Vital Signs / I&O Vital Signs Date Time Temp Pulse Resp B/P (MAP) Pulse Ox O2 Delivery O2 Flow Rate FiO2 02/20/17 12:00 97.8 61 18 121/71 (88) 99 02/20/17 08:00 96 Room Air 02/20/17 08:00 97.9 62 18 103/56 (72) 96 02/20/17 08:00 76 02/20/17 04:00 97.6 64 16 111/68 (82) 97 02/20/17 00:00 97.9 63 16 114/65 (81) 97 02/19/17 20:25 62 02/19/17 20:00 Room Air 02/19/17 19:15 97.2 67 14 149/70 (96) 100 I/O 02/19/17 02/19/17 02/19/17 02/20/17 02/20/17 02/20/17 07:00 15:00 23:00 07:00 15:00 23:00 Intake Total 240 ml 720 ml 340 ml Output Total 600 ml Balance 240 ml 120 ml 340 ml Intake Oral 240 ml 720 ml 240 ml IV Total 100 ml Output Urine Total 600 ml # Voids 3 3 # Bowel Movements 0 1 0 Physical Exam GENERAL: In NAD. SKIN: Warm and dry. HEAD: Normocephalic. EYES: No scleral icterus. No injection or drainage. NECK: Supple, trachea midline. No JVD or lymphadenopathy. CARDIOVASCULAR: Regular rate and rhythm, 1/6 syst murmur, no gallops or rubs. RESPIRATORY: Breath sounds equal bilaterally. No accessory muscle use. GASTROINTESTINAL: Abdomen soft, non-tender, nondistended. MUSCULOSKELETAL: No cyanosis, or edema. Assessment and Plan Problem List: (1) Sepsis ICD Codes: A41.9 - Sepsis, unspecified organism Status: Acute (2) History of prosthetic aortic valve ICD Codes: Z95.2 - Presence of prosthetic heart valve (3) COPD (chronic obstructive pulmonary disease) ICD Codes: J44.9 - Chronic obstructive pulmonary disease, unspecified Assessment and Plan No new cardiac issues. FRANKLIN with no evidence of prosthetic valve endocarditis and normal function of aortic valve prosthesis. Continue current program with antibiotics as per ID. Increase activity. OK to DC from cardiology standpoint. Problem Qualifiers (1) Sepsis: Qualified Codes: A41.9 - Sepsis, unspecified organism Samantha Robledo MD Feb 20, 2017 16:48
== END 2017-02-20 18:15 | DRG 871 ==
LOC: NEPE 17:09 → NEDA 22:29 → NEPGCP 02-11 04:16 → N04A 02-12 18:25
PROVIDERS: ADMIT Hospitalist; ATTEND Hospitalist
PROC: B24BZZ4 Ultrasonography of Heart with Aorta, Transesophageal (ICD-10-PCS; principal; 2017-02-13)
DX: A40.9 Streptococcal sepsis, unspecified (principal); G93.40 Encephalopathy, unspecified; N17.9 Acute kidney failure, unspecified; I95.9 Hypotension, unspecified; E46 Unspecified protein-calorie malnutrition; D69.6 Thrombocytopenia, unspecified; I48.91 Unspecified atrial fibrillation; J44.9 Chronic obstructive pulmonary disease, unspecified; Z68.1 Body mass index [BMI] 19.9 or less, adult; N39.0 Urinary tract infection, site not specified; B95.2 Enterococcus as the cause of diseases classified elsewhere; R65.20 Severe sepsis without septic shock; I10 Essential (primary) hypertension; I25.10 Atherosclerotic heart disease of native coronary artery without angina pectoris; Z95.1 Presence of aortocoronary bypass graft; I35.0 Nonrheumatic aortic (valve) stenosis; Z95.2 Presence of prosthetic heart valve; E86.0 Dehydration; Z86.73 Personal history of transient ischemic attack (TIA), and cerebral infarction without residual deficits; Z87.891 Personal history of nicotine dependence
CPT/HCPCS: 71010; 72141; 72146; 76937; 78806; 80048; 80053; 81001; 82550; 82552; 83605; 83690; 84484; 85007; 85025; 85027; 86403; 87040; 87077; 87086; 87186; 87205; 87804; 93005; 93312; 93320; 93325; 96361; 96374; 96375; A9569; J0696; J1885; J2370; J3370; J7030; J7040; J7050